=== PATIENT | female | born 1945 | race Caucasian/White ===

== ENCOUNTER 2018-08-26 19:42 | Outpatient (CLI) | payer SELFPAY | END 2018-08-26 19:43 | disposition EMS.NT | LOC: EMS 19:42 | PROVIDERS: ATTEND Surgery | DX: R53.83 Other fatigue (principal); R42 Dizziness and giddiness ==

== ENCOUNTER 2020-01-02 15:04 | Outpatient (CLI) | payer MEDICARE, OTHER | END 2020-01-02 15:05 | disposition short-term general hospital (02) | LOC: EMS 15:04 | PROVIDERS: ATTEND Surgery | DX: R55 Syncope and collapse (principal); R11.10 Vomiting, unspecified; R53.1 Weakness | CPT/HCPCS: A0425; A0427 ==

== ENCOUNTER 2020-03-04 15:06 | Outpatient (CLI) | payer MEDICARE, OTHER | END 2020-03-04 15:07 | disposition home or self-care (01) | LOC: COV 15:06 | PROVIDERS: ATTEND Family Medicine | DX: Z20.828 Contact with and (suspected) exposure to other viral communicable diseases (principal) ==

== ENCOUNTER 2022-01-28 18:49 | Outpatient (CLI) | payer MEDICARE, OTHER | END 2022-01-28 18:50 | disposition left against medical advice (07) | LOC: EMS 18:49 | DX: R55 Syncope and collapse (principal) ==

== ENCOUNTER 2022-08-26 16:01 | Outpatient (CLI) | payer MEDICARE, OTHER | END 2022-08-26 23:59 | disposition critical access hospital (66) | LOC: EMS 16:01 | DX: R41.0 Disorientation, unspecified (principal); R46.89 Other symptoms and signs involving appearance and behavior; S09.90XA Unspecified injury of head, initial encounter; W18.2XXA Fall in (into) shower or empty bathtub, initial encounter; Y92.002 Bathroom of unspecified non-institutional (private) residence as the place of occurrence of the external cause | CPT/HCPCS: A0425; A0429 ==

== ENCOUNTER 2022-08-26 16:18 | Emergency (ER) | payer MEDICARE, OTHER ==
--- NOTE | 2022-08-26 16:22 | ED Physician Documentation ---
PD HPI Fall - Stated complaint Stated Complaint: FALL/HEAD INJ - History obtained from History obtained from: EMS - Additional information Additional information: 77-year-old woman presents by ambulance as a trauma after reported fall. All of the history is from EMS as the patient is altered. Reportedly fell and hit her head against a handrail in a friend's bathroom. Unclear if there was loss of consciousness. PD PAST MEDICAL HISTORY - Past Medical History Cardiovascular: Hypertension - Past Surgical History General: Appendectomy Ortho: Other - Allergies Allergies/Adverse Reactions: Allergies Allergy/AdvReac Type Severity Reaction Status Date / Time Unable to Assess Allergy Verified 08/26/22 16:32 PD ED PE NORMAL - Vitals Vital signs reviewed: Yes - General General: Other (She is slightly agitated. She is alert and oriented to person only.) - HEENT HEENT: PERRL, EOMI, Other (There is infraorbital ecchymosis that appears old, EMS corroborates that she had a fall 10 days ago.) - Neck Neck: No bony TTP (But will maintain in c-collar pending imaging given altered mental status.) - Cardiac Cardiac: RRR, No murmur - Respiratory Respiratory: No respiratory distress, Clear bilaterally - Abdomen Abdomen: Non tender - Back Back: No CVA TTP, No spinal TTP - Derm Derm: Normal color, Warm and dry, No rash - Extremities Extremities: No deformity, No tenderness to palpate, Normal ROM s pain - Neuro Neuro: No motor deficit, No sensory deficit, Normal speech Eye Opening: Spontaneous Motor: Obeys Commands Verbal: Confused GCS Score: 14 Results - Vitals Vitals: Vital Signs - 24 hr 08/26/22 08/26/22 16:21 18:21 Temperature 36.5 C Heart Rate 81 84 Respiratory 16 17 Rate Blood Pressure 130/57 L 137/87 H O2 Saturation 99 96 Oxygen O2 Source Room air - EKG (time done) 9746 EKG releavant findings:: EKG personally interpreted by author of this note. Relevant findings are: Rate: Rate (enter#) (80) Rhythm: NSR Conway: Normal QRS: LVH Ischemia: Normal ST segments, Q waves (V1-V4) Compare to prior EKG: Old EKG unavailable Computer interpretation: Agree with computer - Labs Labs: Laboratory Tests 08/26/22 08/26/22 08/26/22 16:25 16:25 16:25 WBC 10.1 RBC 4.61 Hgb 14.2 Hct 42.6 MCV 92.4 MCH 30.8 MCHC 33.3 RDW 13.0 Plt Count 354 MPV 8.7 Neut # (Auto) 6.3 Lymph # (Auto) 2.7 Marshall # (Auto) 0.7 Eos # (Auto) 0.3 Baso # (Auto) 0.1 Absolute Nucleated RBC 0.00 Nucleated RBC % 0.0 PT 10.7 INR 1.0 Sodium 140 Potassium 3.4 L Chloride 102 Carbon Dioxide 24 Anion Gap 14.0 H BUN 25 H Creatinine 1.3 H Estimated GFR (MDRD) 40 L Glucose 156 H Calcium 9.7 Total Bilirubin 0.5 AST 22 ALT 17 Alkaline Phosphatase 84 Total Protein 7.2 Albumin 4.2 Globulin 3.0 Albumin/Globulin Ratio 1.4 Ethyl Alcohol < 5.0 PD Medical Decision Making - ED course ED course: I was in the room at the time of arrival, 1617 On recheck at 5:09 PM. She is alert and oriented and has no complaints. She does note that she felt dizzy before the fall and remembers feeling dizzy before the fall but still does not remember falling per se. We did notice today that she has mildly depressed renal function with a creatinine of 1.3 and a BUN of 25. Also mildly elevated blood sugar at 156. She ambulated in the department without issue. We discussed the findings on her labs and CTs. Her supportive son is at the bedside and will keep an eye on her. Departure - Departure Disposition: 01 Home, Self Care Clinical Impression: Concussion, Fall Condition: Stable Record reviewed to determine appropriate education?: Yes Instructions: ED Concussion Comments: You do have mildly poor kidney function. I do not have old labs on you here so is unclear this could be chronic. Talk with your doctor about it, for reference your BUN was 25 and creatinine was 1.3. Also your blood sugar was mildly elevated at 156. CAT scan of the head and neck were negative except for a mucous retention cyst in the left maxillary sinus which does not require specific intervention follow-up. Call your doctor to arrange a follow-up appointment, make the next available appointment. In the interim, return anytime if worse or if new symptoms develop.
[2022-08-26 16:30] LABS: BASOPHILS # (AUTO) 0.1 10^3/uL (0.0-0.1); BASOPHILS % (AUTO) 0.7 %; EOSINOPHILS # (AUTO) 0.3 10^3/uL (0.0-0.7); EOSINOPHILS % (AUTO) 3.4 %; HCT - HEMATOCRIT 42.6 % (37.0-47.0); HGB - HEMOGLOBIN 14.2 g/dL (12.0-16.0); LYMPHOCYTES # (AUTO) 2.7 10^3/uL (1.5-3.5); LYMPHOCYTES % (AUTO) 26.4 %; MEAN CORPUSCULAR HEMOGLOBIN 30.8 pg (27.0-31.0); MEAN CORPUSCULAR HGB CONC 33.3 g/dL (32.0-36.0); MEAN CORPUSCULAR VOLUME 92.4 fL (81.0-99.0); MEAN PLATELET VOLUME 8.7 fL (7.9-10.8); MONOCYTES # (AUTO) 0.7 10^3/uL (0.0-1.0); MONOCYTES % (AUTO) 6.7 %; NEUTROPHILS # (AUTO) 6.3 10^3/uL (1.5-6.6); NEUTROPHILS % (AUTO) 62.4 %; PLT - PLATELET COUNT 354 10^3/uL (130-450); RED BLOOD COUNT 4.61 10^6/uL (4.20-5.40); WHITE BLOOD COUNT 10.1 x10^3/uL (4.8-10.8)
[2022-08-26 16:39] LABS: PT - PROTHROMBIN TIME 10.7 secs (9.9-12.6)
[2022-08-26 16:42] LABS: ALBUMIN 4.2 g/dL (3.2-5.5); ALBUMIN/GLOBULIN RATIO 1.4 (1.0-2.2); ALKALINE PHOSPHATASE 84 IU/L (42-121); ALT ALANINE AMINOTRANSFERASE 17 IU/L (10-60); AST ASPARTATE AMINOTRANSFERASE 22 IU/L (10-42); BILIRUBIN,TOTAL 0.5 mg/dL (0.2-1.0); BUN - BLOOD UREA NITROGEN 25 mg/dL (6-20); CALCIUM 9.7 mg/dL (8.5-10.3); CARBON DIOXIDE - CO2 24 mmol/L (21-32); CHLORIDE 102 mmol/L (101-111); CREATININE 1.3 mg/dL (0.4-1.0); ETOH - ETHANOL < 5.0 mg/dL; GFR - MDRD 40 (>89); GLUCOSE 156 mg/dL (70-100); POTASSIUM 3.4 mmol/L (3.5-5.0); SODIUM 140 mmol/L (135-145); TOTAL PROTEIN 7.2 g/dL (6.7-8.2)
--- NOTE | 2022-08-26 16:51 | CT Report ---
PROCEDURE: HEAD WO INDICATIONS: head injury/ams TECHNIQUE: Noncontrast 4.5 mm thick angled axial sections acquired from the foramen magnum to the vertex. For r adiation dose reduction, the following was used: automated exposure control, adjustment of mA and/or kV according to patient size. COMPARISON: None. FINDINGS: Image quality: Excellent. CSF spaces: Basal cisterns are patent. No extra-axial fluid collections. Ventricles are normal in size and shape. Brain: No midline shift. No intracranial masses or hemorrhage. Luu-white matter interface is norm al. Age-related volume loss and small vessel ischemic change. Intracranial carotid calcifications. Skull and face: Calvarium and visualized facial bones are intact, without suspicious lesions. Sinuses: Left maxillary sinus mucous retention cyst. Otherwise paranasal sinuses as visualized are cl ear. Mastoids are clear. IMPRESSION: No acute process. Reviewed by: Con Larsen MD on 08/26/2022 4:50 PM PDT Approved by: Con Larsen MD on 08/26/2022 4:50 PM PDT Station ID: [id number]
--- NOTE | 2022-08-26 17:02 | CT Report ---
PROCEDURE: CERVICAL SPINE WO INDICATIONS: head injury/ams TECHNIQUE: Noncontrast 3 mm thick sections acquired from the skull base to the T4 level. Sagittal and coronal r eformats were then constructed. For radiation dose reduction, the following was used: automated exp osure control, adjustment of mA and/or kV according to patient size. COMPARISON: None. FINDINGS: Image quality: Excellent. Bones: No fractures or dislocations. Visualized superior ribs are intact. Cervical spondylitic jessica nge. Soft tissues: Prevertebral soft tissues are normal in thickness. No paravertebral hematomas. No ap ical pneumothoraces. IMPRESSION: No evidence of acute cervical fracture or dislocation. Reviewed by: Con Larsen MD on 08/26/2022 5:00 PM PDT Approved by: Con Larsen MD on 08/26/2022 5:00 PM PDT Station ID: [id number]
--- OUTSIDE RECORDS SUMMARY | 2022-08-26 18:07 | EXTERNAL MEDICAL SUMMARY RPT | Continuity of Care Document ---
Author Name Unknown Address [address] [place] [address] Phone Organization [facility] Address [address] [place] [address] Phone Care Team Providers Care Senior Principal Name Role Phone Cari Kuo Unavailable Unavailable Problems date description facility 2022-08-15 00:00 Laceration of forehead [facility] 2022-08-15 00:00 Anterior dislocation of left sh [facility] 2022-08-15 00:00 Abrasion of skin [facility] 2022-08-23 08:07 Unspecified injury of head, ini tial encounter [facility] Procedures date description facility 2022-08-15 00:00 XR shoulder left, 2+ views [facility] 2022-08-15 00:00 Computed tomography of head or brain without contrast [facility] Results/Labs test date author facility value unit interpretation Result panel 1 (unknown) (no date) (unknown) (unknown) (no value) (units unknown) (unknown) (unknown) (no date) (unknown) (unknown) [id number] (units unknown) (unknown) (unknown) (no date) (unknown) (unknown) 08/15/22 (units unknown) (unknown) (unknown) (no date) (unknown) (unknown) 11:00. (units unknown) (unknown) (unknown) (no date) (unknown) (unknown) [address] [place] [address] (un its unknown) (unknown) (unknown) (no date) (unknown) (unknown) Accession Numb er: [id number] (units unknown) (unknown) (unknown) (no date) (unknown) (unknown) Accession Numb er: [id number] (units unknown) (unknown) (unknown) (no date) (unknown) (unknown) Age/Sex: 77 / F Date of Service: (units unknown) (unknown) (unknown) (no date) (unknown) (unknown) [place] [address] (units unknown) (unknown) (unknown) (no date) (unknown) (unknown) Approved by: Alycia Buenrostro M.D. on 08/15/2022 at 14:26 (units unknown) (unknown) (unknown) (no date) (unknown) (unknown) Approved by: Anika Cassidy M.D. on 08/15/2022 at 16:23 (units unknown) (unknown) (unknown) (no date) (unknown) (unknown) Bones: Anterio r inferior left shoulder dislocation. Mild AC degenerative (units unknown) (unknown) (unknown) (no date) (unknown) (unknown) Brain: No intr acranial bleeds or masses. There is cerebral volume loss for (units unknown) (unknown) (unknown) (no date) (unknown) (unknown) COMPARISON: [facility], CR, SHOULDER MINIMUM 2VIEW RIGHT, 07/11/2014, (units unknown) (unknown) (unknown) (no date) (unknown) (unknown) COMPARISON: [facility], CT, HEAD WITHOUT CONTRAST, 07/11/2014, 11:08. (units unknown) (unknown) (unknown) (no date) (unknown) (unknown) CSF spaces: Ba todd cisterns are patent. No extra-axial fluid collections. The (units unknown) (unknown) (unknown) (no date) (unknown) (unknown) CT Scan Report (unit s unknown) (unknown) (unknown) (no date) (unknown) (unknown) : 3 Acct:[id number] (units unknown) (unknown) (unknown) (no date) (unknown) (unknown) Dictated by: Alycia Buenrostro M.D. on 08/15/2022 at 14:24 (units unknown) (unknown) (unknown) (no date) (unknown) (unknown) Dictated by: Anika Cassidy M.D. on 08/15/2022 at 16:22 (units unknown) (unknown) (unknown) (no date) (unknown) (unknown) FINDINGS: (units unknown) (unknown) (unknown) (no date) (unknown) (unknown) IMPRESSION: An terior shoulder dislocation. Please consider post relocation (units unknown) (unknown) (unknown) (no date) (unknown) (unknown) IMPRESSION: Mi ld left scalp hematoma seen, without an associated calvarial (units unknown) (unknown) (unknown) (no date) (unknown) (unknown) INDICATIONS: f all/hit head (units unknown) (unknown) (unknown) (no date) (unknown) (unknown) INDICATIONS: fall/pa in (units unknown) (unknown) (unknown) (no date) (unknown) (unknown) Image quality: There is artifact associated with the metallic earrings. (units unknown) (unknown) (unknown) (no date) (unknown) (unknown) [facility] (uni ts unknown) (unknown) (unknown) (no date) (unknown) (unknown) Loc: ED (units unknown) (unknown) (unknown) (no date) (unknown) (unknown) No acute intra cranial hemorrhage is seen. (units unknown) (unknown) (unknown) (no date) (unknown) (unknown) No acute intra cranial process is seen. (units unknown) (unknown) (unknown) (no date) (unknown) (unknown) Noncontrast 4. 5 mm thick angled axial sections acquired from the foramen magnum (units unknown) (unknown) (unknown) (no date) (unknown) (unknown) Ordering Provi yoko: Regulo Joseph D.O. (units unknown) (unknown) (unknown) (no date) (unknown) (unknown) PROCEDURE: CT HEAD/BRAIN WO CON (units unknown) (unknown) (unknown) (no date) (unknown) (unknown) PROCEDURE: XR SHOULDER LT MIN 2V (units unknown) (unknown) (unknown) (no date) (unknown) (unknown) Patient: Megan Washington MR#: [id number] (units unknown) (unknown) (unknown) (no date) (unknown) (unknown) Procedure: CT head/brain wo con (units unknown) (unknown) (unknown) (no date) (unknown) (unknown) Procedure: XR shoulder LT min 2V (units unknown) (unknown) (unknown) (no date) (unknown) (unknown) Signed (units unknown) (unknown) (unknown) (no date) (unknown) (unknown) Sinuses: Visua lized sinuses and mastoids are clear. (units unknown) (unknown) (unknown) (no date) (unknown) (unknown) Skull and face : There is a mild scalp hematoma seen anteriorly and on the left, (units unknown) (unknown) (unknown) (no date) (unknown) (unknown) Soft tissues: No suspicious soft tissue calcifications. (units unknown) (unknown) (unknown) (no date) (unknown) (unknown) TECHNIQUE: 3 v iews of the shoulder were acquired. (units unknown) (unknown) (unknown) (no date) (unknown) (unknown) TECHNIQUE: (units unknown) (unknown) (unknown) (no date) (unknown) (unknown) XRay Report (units unknown) (unknown) (unknown) (no date) (unknown) (unknown) age, with (units unknown) (unknown) (unknown) (no date) (unknown) (unknown) artery atherosclerosis. (units unknown) (unknown) (unknown) (no date) (unknown) (unknown) as on (units unknown) (unknown) (unknown) (no date) (unknown) (unknown) can be (units unknown) (unknown) (unknown) (no date) (unknown) (unknown) carotid (units unknown) (unknown) (unknown) (no date) (unknown) (unknown) changes. (units unknown) (unknown) (unknown) (no date) (unknown) (unknown) evaluate any underlying Hill-Sachs or [place] fractures. (units unknown) (unknown) (unknown) (no date) (unknown) (unknown) facial bones a ppear intact, without suspicious lesions. (units unknown) (unknown) (unknown) (no date) (unknown) (unknown) following (units unknown) (unknown) (unknown) (no date) (unknown) (unknown) fracture. (units unknown) (unknown) (unknown) (no date) (unknown) (unknown) imaging t to (units unknown) (unknown) (unknown) (no date) (unknown) (unknown) matter chronic small vessel ischemic changes. Areas of remote lacunar infarcts (units unknown) (unknown) (unknown) (no date) (unknown) (unknown) patient (units unknown) (unknown) (unknown) (no date) (unknown) (unknown) resultant vent ricular and sulcal prominence. There are periventricular and deep (units unknown) (unknown) (unknown) (no date) (unknown) (unknown) seen involving the basal ganglia on both sides. There is intracranial internal (units unknown) (unknown) (unknown) (no date) (unknown) (unknown) series 2, imag e 25. No associated calvarial fracture is seen. Calvarium and (units unknown) (unknown) (unknown) (no date) (unknown) (unknown) size. (units unknown) (unknown) (unknown) (no date) (unknown) (unknown) to the (units unknown) (unknown) (unknown) (no date) (unknown) (unknown) ventricles are symmetric in size and shape. (units unknown) (unknown) (unknown) (no date) (unknown) (unknown) vertex, with c oronal and sagittal reformats. For radiation dose reduction, the (units unknown) (unknown) (unknown) (no date) (unknown) (unknown) visualized (units unknown) (unknown) (unknown) (no date) (unknown) (unknown) was used: auto mated exposure control, adjustment of mA and/or kV according to (units unknown) (unknown) (unknown) (no date) (unknown) (unknown) white (units unknown) (unknown) Result panel 2 (unknown) (no date) (unknown) (unknown) (no value) (units unknown) (unknown) (unknown) (no date) (unknown) (unknown) [id number] (units unknown) (unknown) (unknown) (no date) (unknown) (unknown) 08/15/22 14:57 (unit s unknown) (unknown) (unknown) (no date) (unknown) (unknown) 08/15/22 (units unknown) (unknown) (unknown) (no date) (unknown) (unknown) 14:40 08/15/22 (unit s unknown) (unknown) (unknown) (no date) (unknown) (unknown) 14:52 08/15/22 (unit s unknown) (unknown) (unknown) (no date) (unknown) (unknown) 14:53 08/15/22 (unit s unknown) (unknown) (unknown) (no date) (unknown) (unknown) 14:53 (units unknown) (unknown) (unknown) (no date) (unknown) (unknown) 15:00 (units unknown) (unknown) (unknown) (no date) (unknown) (unknown) ? (units unknown) (unknown) (unknown) (no date) (unknown) (unknown) Age/Sex: 77 / F (uni ts unknown) (unknown) (unknown) (no date) (unknown) (unknown) Allergies (units unknown) (unknown) (unknown) (no date) (unknown) (unknown) Allergy/AdvRea c Type Severity Reaction Status Date / Time (units unknown) (unknown) (unknown) (no date) (unknown) (unknown) Blood Pressure 236/105 H 08/15/22 14:40 (units unknown) (unknown) (unknown) (no date) (unknown) (unknown) Blood Pressure 236/105 H (units unknown) (unknown) (unknown) (no date) (unknown) (unknown) Blood Pressure 237/106 H (units unknown) (unknown) (unknown) (no date) (unknown) (unknown) Brain:? No intracranial bleeds or masses.? There is cerebral volume loss for (units unknown) (unknown) (unknown) (no date) (unknown) (unknown) COMPARISON:? [facility], CT, HEAD WITHOUT CONTRAST, 07/11/2014, 11:08. (units unknown) (unknown) (unknown) (no date) (unknown) (unknown) CSF spaces:? B elvie cisterns are patent.? No extra-axial fluid collections.? The (units unknown) (unknown) (unknown) (no date) (unknown) (unknown) CT head/brain wo con Stat (units unknown) (unknown) (unknown) (no date) (unknown) (unknown) CT scan - head: (uni ts unknown) (unknown) (unknown) (no date) (unknown) (unknown) Chief complaint: Fal l (units unknown) (unknown) (unknown) (no date) (unknown) (unknown) Course (units unknown) (unknown) (unknown) (no date) (unknown) (unknown) : 3 Acct:[id number] (units unknown) (unknown) (unknown) (no date) (unknown) (unknown) Date of Servic e: 08/15/22 (units unknown) (unknown) (unknown) (no date) (unknown) (unknown) Departure (units unknown) (unknown) (unknown) (no date) (unknown) (unknown) Cari Kuo PA-C [Primary Care Provider] (units unknown) (unknown) (unknown) (no date) (unknown) (unknown) Discharge Plan (unit s unknown) (unknown) (unknown) (no date) (unknown) (unknown) ED Orders (units unknown) (unknown) (unknown) (no date) (unknown) (unknown) ER Physician: Regulo Joseph D.O. (units unknown) (unknown) (unknown) (no date) (unknown) (unknown) Emergency Report (un its unknown) (unknown) (unknown) (no date) (unknown) (unknown) Exam (units unknown) (unknown) (unknown) (no date) (unknown) (unknown) FINDINGS:? (units unknown) (unknown) (unknown) (no date) (unknown) (unknown) General (units unknown) (unknown) (unknown) (no date) (unknown) (unknown) HPI - General Adult (units unknown) (unknown) (unknown) (no date) (unknown) (unknown) Hx of appendectomy ( units unknown) (unknown) (unknown) (no date) (unknown) (unknown) Hypertension (units unknown) (unknown) (unknown) (no date) (unknown) (unknown) IMPRESSION:? M ild left scalp hematoma seen, without an associated calvarial (units unknown) (unknown) (unknown) (no date) (unknown) (unknown) INDICATIONS:? fall/hit head (units unknown) (unknown) (unknown) (no date) (unknown) (unknown) Image quality: ? There is artifact associated with the metallic earrings. ? (units unknown) (unknown) (unknown) (no date) (unknown) (unknown) Imaging Data (units unknown) (unknown) (unknown) (no date) (unknown) (unknown) Initial Vital Signs (units unknown) (unknown) (unknown) (no date) (unknown) (unknown) Initial Vital Signs: (units unknown) (unknown) (unknown) (no date) (unknown) (unknown) [address] [address] (units unknown) (unknown) (unknown) (no date) (unknown) (unknown) Medical [place] (units unknown) (unknown) (unknown) (no date) (unknown) (unknown) Medical Histor y (units unknown) (unknown) (unknown) (no date) (unknown) (unknown) Mode of arriva l: Ambulatory (units unknown) (unknown) (unknown) (no date) (unknown) (unknown) No acute intra cranial hemorrhage is seen.? (units unknown) (unknown) (unknown) (no date) (unknown) (unknown) No acute intra cranial process is seen. (units unknown) (unknown) (unknown) (no date) (unknown) (unknown) Noncontrast 4. 5 mm thick angled axial sections acquired from the foramen magnum (units unknown) (unknown) (unknown) (no date) (unknown) (unknown) Ordered: (units unknown) (unknown) (unknown) (no date) (unknown) (unknown) Orders (units unknown) (unknown) (unknown) (no date) (unknown) (unknown) Oxygen Deliver y Method Room Air 08/15/22 14:40 (units unknown) (unknown) (unknown) (no date) (unknown) (unknown) Oxygen Deliver y Method Room Air (units unknown) (unknown) (unknown) (no date) (unknown) (unknown) Patient History (uni ts unknown) (unknown) (unknown) (no date) (unknown) (unknown) Patient: Megan Washington MR#: [id number] (units unknown) (unknown) (unknown) (no date) (unknown) (unknown) Pulse Oximetry 96 (u nits unknown) (unknown) (unknown) (no date) (unknown) (unknown) Pulse Oximetry 97 08/15/22 14:40 (units unknown) (unknown) (unknown) (no date) (unknown) (unknown) Pulse Oximetry 97 94 95 (units unknown) (unknown) (unknown) (no date) (unknown) (unknown) Pulse Rate 85 (units unknown) (unknown) (unknown) (no date) (unknown) (unknown) Pulse Rate 89 08/15/22 14:40 (units unknown) (unknown) (unknown) (no date) (unknown) (unknown) Pulse Rate 89 93 H 8 9 (units unknown) (unknown) (unknown) (no date) (unknown) (unknown) ROCEDURE:? CT HEAD/BRAIN WO CON (units unknown) (unknown) (unknown) (no date) (unknown) (unknown) Radiologist's Impression: (units unknown) (unknown) (unknown) (no date) (unknown) (unknown) Referrals: (units unknown) (unknown) (unknown) (no date) (unknown) (unknown) Related Data (units unknown) (unknown) (unknown) (no date) (unknown) (unknown) Respiratory Ra te 16 08/15/22 14:40 (units unknown) (unknown) (unknown) (no date) (unknown) (unknown) Respiratory Rate 16 (units unknown) (unknown) (unknown) (no date) (unknown) (unknown) Respiratory Rate (un its unknown) (unknown) (unknown) (no date) (unknown) (unknown) Signed By: (units unknown) (unknown) (unknown) (no date) (unknown) (unknown) Sinuses:? Visu alized sinuses and mastoids are clear.? (units unknown) (unknown) (unknown) (no date) (unknown) (unknown) Skull and face :? There is a mild scalp hematoma seen anteriorly and on the left, (units unknown) (unknown) (unknown) (no date) (unknown) (unknown) Smoking Status : Former smoker (units unknown) (unknown) (unknown) (no date) (unknown) (unknown) Social History (units unknown) (unknown) (unknown) (no date) (unknown) (unknown) Source: patient (uni ts unknown) (unknown) (unknown) (no date) (unknown) (unknown) Stated complai nt: fall, head wound, left arm and shoulder pain (units unknown) (unknown) (unknown) (no date) (unknown) (unknown) Substance Use Type: does not use (units unknown) (unknown) (unknown) (no date) (unknown) (unknown) Surgical Histo ry (units unknown) (unknown) (unknown) (no date) (unknown) (unknown) TECHNIQUE:? (units unknown) (unknown) (unknown) (no date) (unknown) (unknown) Temperature 98 .6 F 08/15/22 14:40 (units unknown) (unknown) (unknown) (no date) (unknown) (unknown) Temperature 98.6 F ( units unknown) (unknown) (unknown) (no date) (unknown) (unknown) Temperature (units unknown) (unknown) (unknown) (no date) (unknown) (unknown) Tetanus Toxoid Allergy Unknown Uncoded 07/12/17 12:14 (units unknown) (unknown) (unknown) (no date) (unknown) (unknown) Time Seen by [place]: 08/15/22 15:06 (units unknown) (unknown) (unknown) (no date) (unknown) (unknown) Vital Signs - 8 hr ( units unknown) (unknown) (unknown) (no date) (unknown) (unknown) Vital Signs (units unknown) (unknown) (unknown) (no date) (unknown) (unknown) Vital signs: (units unknown) (unknown) (unknown) (no date) (unknown) (unknown) XR shoulder LT min 2V Stat (units unknown) (unknown) (unknown) (no date) (unknown) (unknown) age, with (units unknown) (unknown) (unknown) (no date) (unknown) (unknown) alcohol intake: neve r (units unknown) (unknown) (unknown) (no date) (unknown) (unknown) artery atherosclerosis.? (units unknown) (unknown) (unknown) (no date) (unknown) (unknown) as on (units unknown) (unknown) (unknown) (no date) (unknown) (unknown) can be (units unknown) (unknown) (unknown) (no date) (unknown) (unknown) carotid (units unknown) (unknown) (unknown) (no date) (unknown) (unknown) facial bones a ppear intact, without suspicious lesions.? (units unknown) (unknown) (unknown) (no date) (unknown) (unknown) following (units unknown) (unknown) (unknown) (no date) (unknown) (unknown) fracture. (units unknown) (unknown) (unknown) (no date) (unknown) (unknown) household memb ers: none (units unknown) (unknown) (unknown) (no date) (unknown) (unknown) matter chronic small vessel ischemic changes.? Areas of remote lacunar infarcts (units unknown) (unknown) (unknown) (no date) (unknown) (unknown) patient (units unknown) (unknown) (unknown) (no date) (unknown) (unknown) resultant vent ricular and sulcal prominence.? There are periventricular and deep (units unknown) (unknown) (unknown) (no date) (unknown) (unknown) seen involving the basal ganglia on both sides.? There is intracranial internal (units unknown) (unknown) (unknown) (no date) (unknown) (unknown) series 2, imag e 25. No associated calvarial fracture is seen.? Calvarium and (units unknown) (unknown) (unknown) (no date) (unknown) (unknown) size.? (units unknown) (unknown) (unknown) (no date) (unknown) (unknown) to the (units unknown) (unknown) (unknown) (no date) (unknown) (unknown) ventricles are symmetric in size and shape.? (units unknown) (unknown) (unknown) (no date) (unknown) (unknown) vertex, with c oronal and sagittal reformats.? For radiation dose reduction, the (units unknown) (unknown) (unknown) (no date) (unknown) (unknown) visualized (units unknown) (unknown) (unknown) (no date) (unknown) (unknown) was used:? aut omated exposure control, adjustment of mA and/or kV according to (units unknown) (unknown) (unknown) (no date) (unknown) (unknown) white (units unknown) (unknown) Result panel 3 (unknown) (no date) (unknown) (unknown) (no value) (units unknown) (unknown) (unknown) (no date) (unknown) (unknown) [id number] (units unknown) (unknown) (unknown) (no date) (unknown) (unknown) 08/15/22 14:57 (unit s unknown) (unknown) (unknown) (no date) (unknown) (unknown) 08/15/22 (units unknown) (unknown) (unknown) (no date) (unknown) (unknown) 1 cm laceratio n to forehead. Contusion to anterior left knee. (units unknown) (unknown) (unknown) (no date) (unknown) (unknown) 11:00. (units unknown) (unknown) (unknown) (no date) (unknown) (unknown) 14:40 08/15/22 (unit s unknown) (unknown) (unknown) (no date) (unknown) (unknown) 14:52 08/15/22 (unit s unknown) (unknown) (unknown) (no date) (unknown) (unknown) 14:53 08/15/22 (unit s unknown) (unknown) (unknown) (no date) (unknown) (unknown) 14:53 (units unknown) (unknown) (unknown) (no date) (unknown) (unknown) 15:00 (units unknown) (unknown) (unknown) (no date) (unknown) (unknown) ? (units unknown) (unknown) (unknown) (no date) (unknown) (unknown) Age/Sex: 77 / F (uni ts unknown) (unknown) (unknown) (no date) (unknown) (unknown) Allergies (units unknown) (unknown) (unknown) (no date) (unknown) (unknown) Allergy/AdvRea c Type Severity Reaction Status Date / Time (units unknown) (unknown) (unknown) (no date) (unknown) (unknown) Altered level of conciousness present: No (units unknown) (unknown) (unknown) (no date) (unknown) (unknown) Auscultation: clear to auscultation bilaterally (units unknown) (unknown) (unknown) (no date) (unknown) (unknown) Back/Spine/Pelvis (u nits unknown) (unknown) (unknown) (no date) (unknown) (unknown) Bandage was pl aced over the cut to her forehead. (units unknown) (unknown) (unknown) (no date) (unknown) (unknown) Bedside Urine Bilirubin - Negative (units unknown) (unknown) (unknown) (no date) (unknown) (unknown) Bedside Urine Glucose Negative (units unknown) (unknown) (unknown) (no date) (unknown) (unknown) Bedside Urine Ketone - Negative (units unknown) (unknown) (unknown) (no date) (unknown) (unknown) Bedside Urine Leukocytes + 70 (units unknown) (unknown) (unknown) (no date) (unknown) (unknown) Bedside Urine Nitrite + Positive (units unknown) (unknown) (unknown) (no date) (unknown) (unknown) Bedside Urine Occult Blood +/ (units unknown) (unknown) (unknown) (no date) (unknown) (unknown) Bedside Urine Protein - Negative (units unknown) (unknown) (unknown) (no date) (unknown) (unknown) Bedside Urine Urobilinogen - Negative (units unknown) (unknown) (unknown) (no date) (unknown) (unknown) Bedside Urine pH 6.5 (units unknown) (unknown) (unknown) (no date) (unknown) (unknown) Blood Pressure 236/105 H 08/15/22 14:40 (units unknown) (unknown) (unknown) (no date) (unknown) (unknown) Blood Pressure 236/105 H (units unknown) (unknown) (unknown) (no date) (unknown) (unknown) Blood Pressure 237/106 H (units unknown) (unknown) (unknown) (no date) (unknown) (unknown) Bones:? Anteri or inferior left shoulder dislocation.? Mild AC degenerative (units unknown) (unknown) (unknown) (no date) (unknown) (unknown) Brain:? No intracranial bleeds or masses.? There is cerebral volume loss for (units unknown) (unknown) (unknown) (no date) (unknown) (unknown) COMPARISON:? [facility], CR, SHOULDER MINIMUM 2VIEW RIGHT, 07/11/2014, (units unknown) (unknown) (unknown) (no date) (unknown) (unknown) COMPARISON:? [facility], CT, HEAD WITHOUT CONTRAST, 07/11/2014, 11:08. (units unknown) (unknown) (unknown) (no date) (unknown) (unknown) CSF spaces:? B elvie cisterns are patent.? No extra-axial fluid collections.? The (units unknown) (unknown) (unknown) (no date) (unknown) (unknown) CT head/brain wo con Stat (units unknown) (unknown) (unknown) (no date) (unknown) (unknown) CT scan - head: (uni ts unknown) (unknown) (unknown) (no date) (unknown) (unknown) Cardio (units unknown) (unknown) (unknown) (no date) (unknown) (unknown) Cardiovascular (unit s unknown) (unknown) (unknown) (no date) (unknown) (unknown) Cardiovascular : Reports system reviewed and no additional complaints, except as (units unknown) (unknown) (unknown) (no date) (unknown) (unknown) Cervical Spine : No cervical muscular tenderness and No cervical spinal (units unknown) (unknown) (unknown) (no date) (unknown) (unknown) Chest (units unknown) (unknown) (unknown) (no date) (unknown) (unknown) Chest: No crep itus and No tenderness (units unknown) (unknown) (unknown) (no date) (unknown) (unknown) Chief complaint: Fal l (units unknown) (unknown) (unknown) (no date) (unknown) (unknown) Const (units unknown) (unknown) (unknown) (no date) (unknown) (unknown) Constitutional (unit s unknown) (unknown) (unknown) (no date) (unknown) (unknown) Constitutional : Reports system reviewed and no additional complaints, except as (units unknown) (unknown) (unknown) (no date) (unknown) (unknown) Course (units unknown) (unknown) (unknown) (no date) (unknown) (unknown) : 3 Acct:[id number] (units unknown) (unknown) (unknown) (no date) (unknown) (unknown) Date of Servic e: 08/15/22 (units unknown) (unknown) (unknown) (no date) (unknown) (unknown) Departure (units unknown) (unknown) (unknown) (no date) (unknown) (unknown) Cari Kuo PA-C [Primary Care Provider] (units unknown) (unknown) (unknown) (no date) (unknown) (unknown) Discharge Plan (unit s unknown) (unknown) (unknown) (no date) (unknown) (unknown) Discomfort to the left shoulder. Tingling to the left little finger. (units unknown) (unknown) (unknown) (no date) (unknown) (unknown) Discontinued Medications (units unknown) (unknown) (unknown) (no date) (unknown) (unknown) Distracting In jury Present: No (units unknown) (unknown) (unknown) (no date) (unknown) (unknown) ED Orders (units unknown) (unknown) (unknown) (no date) (unknown) (unknown) ENT (units unknown) (unknown) (unknown) (no date) (unknown) (unknown) ER Physician: Regulo Joseph D.O. (units unknown) (unknown) (unknown) (no date) (unknown) (unknown) Ears, Nose, Mo uth, and Throat: Reports system reviewed and no additional (units unknown) (unknown) (unknown) (no date) (unknown) (unknown) Effort + Inspe ction: normal respiratory effort (units unknown) (unknown) (unknown) (no date) (unknown) (unknown) Emergency Report (un its unknown) (unknown) (unknown) (no date) (unknown) (unknown) Esterase (units unknown) (unknown) (unknown) (no date) (unknown) (unknown) Exam (units unknown) (unknown) (unknown) (no date) (unknown) (unknown) Extrem (units unknown) (unknown) (unknown) (no date) (unknown) (unknown) Extremity x-ray #1: (units unknown) (unknown) (unknown) (no date) (unknown) (unknown) FINDINGS:? (units unknown) (unknown) (unknown) (no date) (unknown) (unknown) Focal Neurolog ic deficit present: No (units unknown) (unknown) (unknown) (no date) (unknown) (unknown) GCS (units unknown) (unknown) (unknown) (no date) (unknown) (unknown) Gastrointestinal (un its unknown) (unknown) (unknown) (no date) (unknown) (unknown) Gastrointestin al: Reports system reviewed and no additional complaints, except (units unknown) (unknown) (unknown) (no date) (unknown) (unknown) General (units unknown) (unknown) (unknown) (no date) (unknown) (unknown) General: coope rative, comfortable and No ill appearing (units unknown) (unknown) (unknown) (no date) (unknown) (unknown) General: patie nt alert, patient awake and patient oriented x3 (units unknown) (unknown) (unknown) (no date) (unknown) (unknown) [place] coma [place] eye opening: Spontaneous (units unknown) (unknown) (unknown) (no date) (unknown) (unknown) [place] coma s [place] motor response: Obey commands (units unknown) (unknown) (unknown) (no date) (unknown) (unknown) [place] coma [place] total score: 15 (units unknown) (unknown) (unknown) (no date) (unknown) (unknown) [place] coma [place] verbal response: Orientated (units unknown) (unknown) (unknown) (no date) (unknown) (unknown) HENMT (units unknown) (unknown) (unknown) (no date) (unknown) (unknown) HPI - General Adult (units unknown) (unknown) (unknown) (no date) (unknown) (unknown) HPI narrative: (unit s unknown) (unknown) (unknown) (no date) (unknown) (unknown) Head: contusio n and laceration (Forehead) (units unknown) (unknown) (unknown) (no date) (unknown) (unknown) Hematologic/Lymphati c (units unknown) (unknown) (unknown) (no date) (unknown) (unknown) History of Pre sent Illness (units unknown) (unknown) (unknown) (no date) (unknown) (unknown) Hx of appendectomy ( units unknown) (unknown) (unknown) (no date) (unknown) (unknown) Hypertension (units unknown) (unknown) (unknown) (no date) (unknown) (unknown) IMPRESSION:? A nterior shoulder dislocation.? Please consider post relocation (units unknown) (unknown) (unknown) (no date) (unknown) (unknown) IMPRESSION:? M ild left scalp hematoma seen, without an associated calvarial (units unknown) (unknown) (unknown) (no date) (unknown) (unknown) INDICATIONS:? fall/hit head (units unknown) (unknown) (unknown) (no date) (unknown) (unknown) INDICATIONS:? fall/pain (units unknown) (unknown) (unknown) (no date) (unknown) (unknown) Image quality: ? There is artifact associated with the metallic earrings. ? (units unknown) (unknown) (unknown) (no date) (unknown) (unknown) Imaging Data (units unknown) (unknown) (unknown) (no date) (unknown) (unknown) Initial Vital Signs (units unknown) (unknown) (unknown) (no date) (unknown) (unknown) Initial Vital Signs: (units unknown) (unknown) (unknown) (no date) (unknown) (unknown) Integumentary/Breast s (units unknown) (unknown) (unknown) (no date) (unknown) (unknown) Intoxication p resent: No (units unknown) (unknown) (unknown) (no date) (unknown) (unknown) [address] [place] [address] (units unknown) (unknown) (unknown) (no date) (unknown) (unknown) Lab Data (units unknown) (unknown) (unknown) (no date) (unknown) (unknown) Lab results re viewed: Yes I reviewed the patient's lab results. (units unknown) (unknown) (unknown) (no date) (unknown) (unknown) Labs: (units unknown) (unknown) (unknown) (no date) (unknown) (unknown) Medical Decisi on Making (units unknown) (unknown) (unknown) (no date) (unknown) (unknown) Medical Histor y (units unknown) (unknown) (unknown) (no date) (unknown) (unknown) Midline spinal tenderness present: No (units unknown) (unknown) (unknown) (no date) (unknown) (unknown) Mode of arriva l: Ambulatory (units unknown) (unknown) (unknown) (no date) (unknown) (unknown) Neuro (units unknown) (unknown) (unknown) (no date) (unknown) (unknown) Neurologic (units unknown) (unknown) (unknown) (no date) (unknown) (unknown) Neurologic: Re ports system reviewed and no additional complaints, except as (units unknown) (unknown) (unknown) (no date) (unknown) (unknown) Nexus Criteria for C-spine: 0 (units unknown) (unknown) (unknown) (no date) (unknown) (unknown) Nexus Score fo r C-Spine (units unknown) (unknown) (unknown) (no date) (unknown) (unknown) No acute intra cranial hemorrhage is seen.? (units unknown) (unknown) (unknown) (no date) (unknown) (unknown) No acute intra cranial process is seen. (units unknown) (unknown) (unknown) (no date) (unknown) (unknown) Noncontrast 4. 5 mm thick angled axial sections acquired from the foramen magnum (units unknown) (unknown) (unknown) (no date) (unknown) (unknown) On Anticoagulants: Y es (units unknown) (unknown) (unknown) (no date) (unknown) (unknown) Ordered: (units unknown) (unknown) (unknown) (no date) (unknown) (unknown) Orders (units unknown) (unknown) (unknown) (no date) (unknown) (unknown) Other: (units unknown) (unknown) (unknown) (no date) (unknown) (unknown) Oxygen Deliver y Method Room Air 08/15/22 14:40 (units unknown) (unknown) (unknown) (no date) (unknown) (unknown) Oxygen Deliver y Method Room Air (units unknown) (unknown) (unknown) (no date) (unknown) (unknown) PROCEDURE:? XR SHOULDER LT MIN 2V (units unknown) (unknown) (unknown) (no date) (unknown) (unknown) Patient History (uni ts unknown) (unknown) (unknown) (no date) (unknown) (unknown) Patient is a 77-year-old female who is here for evaluation of injuries that she (units unknown) (unknown) (unknown) (no date) (unknown) (unknown) Patient: Megan Washington MR#: [id number] (units unknown) (unknown) (unknown) (no date) (unknown) (unknown) Point of care testin g: (units unknown) (unknown) (unknown) (no date) (unknown) (unknown) Propofol (Prop ofol 200 Mg/20 Ml Vial) 100 mg IV NOW ONE (units unknown) (unknown) (unknown) (no date) (unknown) (unknown) Pulse Oximetry 96 (u nits unknown) (unknown) (unknown) (no date) (unknown) (unknown) Pulse Oximetry 97 08/15/22 14:40 (units unknown) (unknown) (unknown) (no date) (unknown) (unknown) Pulse Oximetry 97 94 95 (units unknown) (unknown) (unknown) (no date) (unknown) (unknown) Pulse Rate 85 (units unknown) (unknown) (unknown) (no date) (unknown) (unknown) Pulse Rate 89 08/15/22 14:40 (units unknown) (unknown) (unknown) (no date) (unknown) (unknown) Pulse Rate 89 93 H 8 9 (units unknown) (unknown) (unknown) (no date) (unknown) (unknown) ROCEDURE:? CT HEAD/BRAIN WO CON (units unknown) (unknown) (unknown) (no date) (unknown) (unknown) Radiologist's Impression: (units unknown) (unknown) (unknown) (no date) (unknown) (unknown) Rate: regular rate ( units unknown) (unknown) (unknown) (no date) (unknown) (unknown) Referrals: (units unknown) (unknown) (unknown) (no date) (unknown) (unknown) Related Data (units unknown) (unknown) (unknown) (no date) (unknown) (unknown) Resp (units unknown) (unknown) (unknown) (no date) (unknown) (unknown) Respiratory Ra te 16 08/15/22 14:40 (units unknown) (unknown) (unknown) (no date) (unknown) (unknown) Respiratory Rate 16 (units unknown) (unknown) (unknown) (no date) (unknown) (unknown) Respiratory Rate (un its unknown) (unknown) (unknown) (no date) (unknown) (unknown) Respiratory (units unknown) (unknown) (unknown) (no date) (unknown) (unknown) Respiratory: R eports system reviewed and no additional complaints, except as (units unknown) (unknown) (unknown) (no date) (unknown) (unknown) Review of Systems (u nits unknown) (unknown) (unknown) (no date) (unknown) (unknown) Rhythm: regular rhyt hm (units unknown) (unknown) (unknown) (no date) (unknown) (unknown) Scores (units unknown) (unknown) (unknown) (no date) (unknown) (unknown) Signed By: (units unknown) (unknown) (unknown) (no date) (unknown) (unknown) Sinuses:? Visu alized sinuses and mastoids are clear.? (units unknown) (unknown) (unknown) (no date) (unknown) (unknown) Skin (units unknown) (unknown) (unknown) (no date) (unknown) (unknown) Skin/Breast: R eports system reviewed and no additional complaints, except as (units unknown) (unknown) (unknown) (no date) (unknown) (unknown) Skull and face :? There is a mild scalp hematoma seen anteriorly and on the left, (units unknown) (unknown) (unknown) (no date) (unknown) (unknown) Smoking Status : Former smoker (units unknown) (unknown) (unknown) (no date) (unknown) (unknown) Social History (units unknown) (unknown) (unknown) (no date) (unknown) (unknown) Sodium Chlorid e (Normal Saline 0.9%) 1,000 mls @ 125 mls/hr IV CONT JACKI (units unknown) (unknown) (unknown) (no date) (unknown) (unknown) Soft tissues:? No suspicious soft tissue calcifications.? (units unknown) (unknown) (unknown) (no date) (unknown) (unknown) Source: patient (uni ts unknown) (unknown) (unknown) (no date) (unknown) (unknown) Stated complai nt: fall, head wound, left arm and shoulder pain (units unknown) (unknown) (unknown) (no date) (unknown) (unknown) Stop: 08/15/22 16:13 (units unknown) (unknown) (unknown) (no date) (unknown) (unknown) Substance Use Type: does not use (units unknown) (unknown) (unknown) (no date) (unknown) (unknown) Surgical Histo ry (units unknown) (unknown) (unknown) (no date) (unknown) (unknown) TECHNIQUE:? 3 views of the shoulder were acquired.? (units unknown) (unknown) (unknown) (no date) (unknown) (unknown) TECHNIQUE:? (units unknown) (unknown) (unknown) (no date) (unknown) (unknown) Temperature 98 .6 F 08/15/22 14:40 (units unknown) (unknown) (unknown) (no date) (unknown) (unknown) Temperature 98.6 F ( units unknown) (unknown) (unknown) (no date) (unknown) (unknown) Temperature (units unknown) (unknown) (unknown) (no date) (unknown) (unknown) Tetanus Toxoid Allergy Unknown Uncoded 07/12/17 12:14 (units unknown) (unknown) (unknown) (no date) (unknown) (unknown) Time Seen by [place]: 08/15/22 15:06 (units unknown) (unknown) (unknown) (no date) (unknown) (unknown) Urine Dip (units unknown) (unknown) (unknown) (no date) (unknown) (unknown) Urine Specific [place] 1.015 (units unknown) (unknown) (unknown) (no date) (unknown) (unknown) Vital Signs - 8 hr ( units unknown) (unknown) (unknown) (no date) (unknown) (unknown) Vital Signs (units unknown) (unknown) (unknown) (no date) (unknown) (unknown) Vital signs: (units unknown) (unknown) (unknown) (no date) (unknown) (unknown) XR shoulder LT min 2V Stat (units unknown) (unknown) (unknown) (no date) (unknown) (unknown) age, with (units unknown) (unknown) (unknown) (no date) (unknown) (unknown) alcohol intake: karoline yang (units unknown) (unknown) (unknown) (no date) (unknown) (unknown) and fell for[address] and hit her head and also injured her left shoulder. There was (units unknown) (unknown) (unknown) (no date) (unknown) (unknown) artery atherosclerosis.? (units unknown) (unknown) (unknown) (no date) (unknown) (unknown) as documented (units unknown) (unknown) (unknown) (no date) (unknown) (unknown) as on (units unknown) (unknown) (unknown) (no date) (unknown) (unknown) can be (units unknown) (unknown) (unknown) (no date) (unknown) (unknown) carotid (units unknown) (unknown) (unknown) (no date) (unknown) (unknown) changes. (units unknown) (unknown) (unknown) (no date) (unknown) (unknown) complaints, ex cept as documented (units unknown) (unknown) (unknown) (no date) (unknown) (unknown) documented (units unknown) (unknown) (unknown) (no date) (unknown) (unknown) evaluate any underlying Hill-Sachs or [place] fractures. (units unknown) (unknown) (unknown) (no date) (unknown) (unknown) facial bones a ppear intact, without suspicious lesions.? (units unknown) (unknown) (unknown) (no date) (unknown) (unknown) following (units unknown) (unknown) (unknown) (no date) (unknown) (unknown) fracture. (units unknown) (unknown) (unknown) (no date) (unknown) (unknown) household memb ers: none (units unknown) (unknown) (unknown) (no date) (unknown) (unknown) imaging t to (units unknown) (unknown) (unknown) (no date) (unknown) (unknown) matter chronic small vessel ischemic changes.? Areas of remote lacunar infarcts (units unknown) (unknown) (unknown) (no date) (unknown) (unknown) no loss of consciousness. She is no neck pain. She did sustain some bruising (units unknown) (unknown) (unknown) (no date) (unknown) (unknown) patient (units unknown) (unknown) (unknown) (no date) (unknown) (unknown) resultant vent ricular and sulcal prominence.? There are periventricular and deep (units unknown) (unknown) (unknown) (no date) (unknown) (unknown) seen involving the basal ganglia on both sides.? There is intracranial internal (units unknown) (unknown) (unknown) (no date) (unknown) (unknown) series 2, imag e 25. No associated calvarial fracture is seen.? Calvarium and (units unknown) (unknown) (unknown) (no date) (unknown) (unknown) size.? (units unknown) (unknown) (unknown) (no date) (unknown) (unknown) sustained when she was throwing some garbage into a dumpster. She states she (units unknown) (unknown) (unknown) (no date) (unknown) (unknown) tenderness (units unknown) (unknown) (unknown) (no date) (unknown) (unknown) to her left kn ee and her right elbow. She was placed in a sling in triage. (units unknown) (unknown) (unknown) (no date) (unknown) (unknown) to the (units unknown) (unknown) (unknown) (no date) (unknown) (unknown) turned around. She thinks she got her feet caught on something on the ground (units unknown) (unknown) (unknown) (no date) (unknown) (unknown) ventricles are symmetric in size and shape.? (units unknown) (unknown) (unknown) (no date) (unknown) (unknown) vertex, with c oronal and sagittal reformats.? For radiation dose reduction, the (units unknown) (unknown) (unknown) (no date) (unknown) (unknown) visualized (units unknown) (unknown) (unknown) (no date) (unknown) (unknown) was used:? aut omated exposure control, adjustment of mA and/or kV according to (units unknown) (unknown) (unknown) (no date) (unknown) (unknown) white (units unknown) (unknown) Result panel 4 (unknown) (no date) (unknown) (unknown) (no value) (units unknown) (unknown) (unknown) (no date) (unknown) (unknown) [id number] (units unknown) (unknown) (unknown) (no date) (unknown) (unknown) 08/15/22 (units unknown) (unknown) (unknown) (no date) (unknown) (unknown) [address] [place] [address] (un its unknown) (unknown) (unknown) (no date) (unknown) (unknown) Accession Numb er: [id number] (units unknown) (unknown) (unknown) (no date) (unknown) (unknown) Age/Sex: 77 / F Date of Service: (units unknown) (unknown) (unknown) (no date) (unknown) (unknown) [place] [address] (units unknown) (unknown) (unknown) (no date) (unknown) (unknown) Approved by: Alycia Buenrostro M.D. on 08/15/2022 at 16:21 (units unknown) (unknown) (unknown) (no date) (unknown) (unknown) Bones: The lef t shoulder has now been relocated. (units unknown) (unknown) (unknown) (no date) (unknown) (unknown) COMPARISON: [facility], CR, XR SHOULDER LT MIN 2V, 08/15/2022, 15:00. (units unknown) (unknown) (unknown) (no date) (unknown) (unknown) : 3 Acct:[id number] (units unknown) (unknown) (unknown) (no date) (unknown) (unknown) Dictated by: Alycia Buenrostro M.D. on 08/15/2022 at 16:21 (units unknown) (unknown) (unknown) (no date) (unknown) (unknown) FINDINGS: (units unknown) (unknown) (unknown) (no date) (unknown) (unknown) Hospital, CT, CT HEAD/BRAIN WO CON, 08/15/2022, 15:03. (units unknown) (unknown) (unknown) (no date) (unknown) (unknown) IMPRESSION: In terval relocation of the left shoulder, without a fracture (units unknown) (unknown) (unknown) (no date) (unknown) (unknown) INDICATIONS: Reducti on (units unknown) (unknown) (unknown) (no date) (unknown) (unknown) If it would be helpful for clinical management decision making, please consider (units unknown) (unknown) (unknown) (no date) (unknown) (unknown) [facility] (uni ts unknown) (unknown) (unknown) (no date) (unknown) (unknown) [place] (units unknown) (unknown) (unknown) (no date) (unknown) (unknown) Loc: ED (units unknown) (unknown) (unknown) (no date) (unknown) (unknown) No displaced f ractures are seen. Age-appropriate bony degenerative changes are (units unknown) (unknown) (unknown) (no date) (unknown) (unknown) Ordering Provdwayne yoko: Regulo Joseph D.O. (units unknown) (unknown) (unknown) (no date) (unknown) (unknown) PROCEDURE: XR SHOULDER LT MIN 2V (units unknown) (unknown) (unknown) (no date) (unknown) (unknown) Patient: Megan Washington MR#: [id number] (units unknown) (unknown) (unknown) (no date) (unknown) (unknown) Procedure: XR shoulder LT min 2V (units unknown) (unknown) (unknown) (no date) (unknown) (unknown) Signed (units unknown) (unknown) (unknown) (no date) (unknown) (unknown) Soft tissues: No suspicious soft tissue calcifications. The visualized lung (units unknown) (unknown) (unknown) (no date) (unknown) (unknown) TECHNIQUE: 2 v iews of the shoulder were acquired. (units unknown) (unknown) (unknown) (no date) (unknown) (unknown) XRay Report (units unknown) (unknown) (unknown) (no date) (unknown) (unknown) a (units unknown) (unknown) (unknown) (no date) (unknown) (unknown) contraindication). ( units unknown) (unknown) (unknown) (no date) (unknown) (unknown) dedicated, jacki eduled shoulder MRI for further evaluation (assuming that there is (units unknown) (unknown) (unknown) (no date) (unknown) (unknown) demonstrates a n unremarkable appearance. (units unknown) (unknown) (unknown) (no date) (unknown) (unknown) identified. (units unknown) (unknown) (unknown) (no date) (unknown) (unknown) no (units unknown) (unknown) (unknown) (no date) (unknown) (unknown) seen. (units unknown) (unknown) Result panel 5 (unknown) (no date) (unknown) (unknown) (no value) (units unknown) (unknown) (unknown) (no date) (unknown) (unknown) [id number] (units unknown) (unknown) (unknown) (no date) (unknown) (unknown) 08/15/22 14:57 (unit s unknown) (unknown) (unknown) (no date) (unknown) (unknown) 08/15/22 16:46 (unit s unknown) (unknown) (unknown) (no date) (unknown) (unknown) 08/15/22 (units unknown) (unknown) (unknown) (no date) (unknown) (unknown) 1 cm laceratio n to forehead. Contusion to anterior left knee. (units unknown) (unknown) (unknown) (no date) (unknown) (unknown) 11:00. (units unknown) (unknown) (unknown) (no date) (unknown) (unknown) 14:40 08/15/22 (unit s unknown) (unknown) (unknown) (no date) (unknown) (unknown) 14:52 08/15/22 (unit s unknown) (unknown) (unknown) (no date) (unknown) (unknown) 14:53 08/15/22 (unit s unknown) (unknown) (unknown) (no date) (unknown) (unknown) 14:53 (units unknown) (unknown) (unknown) (no date) (unknown) (unknown) 15:00 08/15/22 (unit s unknown) (unknown) (unknown) (no date) (unknown) (unknown) 15:25 08/15/22 (unit s unknown) (unknown) (unknown) (no date) (unknown) (unknown) 15:25 (units unknown) (unknown) (unknown) (no date) (unknown) (unknown) 15:30 08/15/22 (unit s unknown) (unknown) (unknown) (no date) (unknown) (unknown) 15:30 (units unknown) (unknown) (unknown) (no date) (unknown) (unknown) 15:45 08/15/22 (unit s unknown) (unknown) (unknown) (no date) (unknown) (unknown) 16:30 (units unknown) (unknown) (unknown) (no date) (unknown) (unknown) 16:31 08/15/22 (unit s unknown) (unknown) (unknown) (no date) (unknown) (unknown) 16:45 08/15/22 (unit s unknown) (unknown) (unknown) (no date) (unknown) (unknown) 16:45 (units unknown) (unknown) (unknown) (no date) (unknown) (unknown) 16:50 08/15/22 (unit s unknown) (unknown) (unknown) (no date) (unknown) (unknown) 16:50 (units unknown) (unknown) (unknown) (no date) (unknown) (unknown) 16:55 08/15/22 (unit s unknown) (unknown) (unknown) (no date) (unknown) (unknown) 17:00 08/15/22 (unit s unknown) (unknown) (unknown) (no date) (unknown) (unknown) 17:00 (units unknown) (unknown) (unknown) (no date) (unknown) (unknown) 17:05 08/15/22 (unit s unknown) (unknown) (unknown) (no date) (unknown) (unknown) 17:05 (units unknown) (unknown) (unknown) (no date) (unknown) (unknown) 17:10 08/15/22 (unit s unknown) (unknown) (unknown) (no date) (unknown) (unknown) 17:10 (units unknown) (unknown) (unknown) (no date) (unknown) (unknown) 17:17 08/15/22 (unit s unknown) (unknown) (unknown) (no date) (unknown) (unknown) 17:20 08/15/22 (unit s unknown) (unknown) (unknown) (no date) (unknown) (unknown) 17:20 (units unknown) (unknown) (unknown) (no date) (unknown) (unknown) 17:25 08/15/22 (unit s unknown) (unknown) (unknown) (no date) (unknown) (unknown) 17:32 08/15/22 (unit s unknown) (unknown) (unknown) (no date) (unknown) (unknown) 17:32 (units unknown) (unknown) (unknown) (no date) (unknown) (unknown) ? (units unknown) (unknown) (unknown) (no date) (unknown) (unknown) ASA Class: II (units unknown) (unknown) (unknown) (no date) (unknown) (unknown) Age/Sex: 77 / F (uni ts unknown) (unknown) (unknown) (no date) (unknown) (unknown) Allergies (units unknown) (unknown) (unknown) (no date) (unknown) (unknown) Allergy/AdvRea c Type Severity Reaction Status Date / Time (units unknown) (unknown) (unknown) (no date) (unknown) (unknown) Altered level of conciousness present: No (units unknown) (unknown) (unknown) (no date) (unknown) (unknown) Amount of anes thesia used (mL): 2 (units unknown) (unknown) (unknown) (no date) (unknown) (unknown) Analgesia: pro cedural sedation (units unknown) (unknown) (unknown) (no date) (unknown) (unknown) Auscultation: clear to auscultation bilaterally (units unknown) (unknown) (unknown) (no date) (unknown) (unknown) Back/Spine/Pelvis (u nits unknown) (unknown) (unknown) (no date) (unknown) (unknown) Bandage was pl aced over the cut to her forehead. (units unknown) (unknown) (unknown) (no date) (unknown) (unknown) Bedside Urine Bilirubin - Negative (units unknown) (unknown) (unknown) (no date) (unknown) (unknown) Bedside Urine Glucose Negative (units unknown) (unknown) (unknown) (no date) (unknown) (unknown) Bedside Urine Ketone - Negative (units unknown) (unknown) (unknown) (no date) (unknown) (unknown) Bedside Urine Leukocytes + 70 (units unknown) (unknown) (unknown) (no date) (unknown) (unknown) Bedside Urine Nitrite + Positive (units unknown) (unknown) (unknown) (no date) (unknown) (unknown) Bedside Urine Occult Blood +/ (units unknown) (unknown) (unknown) (no date) (unknown) (unknown) Bedside Urine Protein - Negative (units unknown) (unknown) (unknown) (no date) (unknown) (unknown) Bedside Urine Urobilinogen - Negative (units unknown) (unknown) (unknown) (no date) (unknown) (unknown) Bedside Urine pH 6.5 (units unknown) (unknown) (unknown) (no date) (unknown) (unknown) Blood Pressure 175/76 H (units unknown) (unknown) (unknown) (no date) (unknown) (unknown) Blood Pressure 187/80 H (units unknown) (unknown) (unknown) (no date) (unknown) (unknown) Blood Pressure 200/92 H 183/84 H (units unknown) (unknown) (unknown) (no date) (unknown) (unknown) Blood Pressure 215/98 H (units unknown) (unknown) (unknown) (no date) (unknown) (unknown) Blood Pressure 218/91 H 204/91 H (units unknown) (unknown) (unknown) (no date) (unknown) (unknown) Blood Pressure 222/97 H (units unknown) (unknown) (unknown) (no date) (unknown) (unknown) Blood Pressure 226/97 H 223/100 H (units unknown) (unknown) (unknown) (no date) (unknown) (unknown) Blood Pressure 229/103 H 220/98 H (units unknown) (unknown) (unknown) (no date) (unknown) (unknown) Blood Pressure 236/105 H 08/15/ 14:40 (units unknown) (unknown) (unknown) (no date) (unknown) (unknown) Blood Pressure 236/105 H (units unknown) (unknown) (unknown) (no date) (unknown) (unknown) Blood Pressure 237/106 H (units unknown) (unknown) (unknown) (no date) (unknown) (unknown) Bones:? Anteri or inferior left shoulder dislocation.? Mild AC degenerative (units unknown) (unknown) (unknown) (no date) (unknown) (unknown) Bones:? The le ft shoulder has now been relocated. (units unknown) (unknown) (unknown) (no date) (unknown) (unknown) Brain:? No intracranial bleeds or masses.? There is cerebral volume loss for (units unknown) (unknown) (unknown) (no date) (unknown) (unknown) COMPARISON:? [facility], CR, SHOULDER MINIMUM 2VIEW RIGHT, 07/11/2014, (units unknown) (unknown) (unknown) (no date) (unknown) (unknown) COMPARISON:? [facility], CR, XR SHOULDER LT MIN 2V, 08/15/2022, 15:00.? (units unknown) (unknown) (unknown) (no date) (unknown) (unknown) COMPARISON:? [facility], CT, HEAD WITHOUT CONTRAST, 07/11/2014, 11:08. (units unknown) (unknown) (unknown) (no date) (unknown) (unknown) CSF spaces:? B elvie cisterns are patent.? No extra-axial fluid collections.? The (units unknown) (unknown) (unknown) (no date) (unknown) (unknown) CT head/brain wo con Stat (units unknown) (unknown) (unknown) (no date) (unknown) (unknown) CT scan - head: (uni ts unknown) (unknown) (unknown) (no date) (unknown) (unknown) Cardio (units unknown) (unknown) (unknown) (no date) (unknown) (unknown) Cardiovascular (unit s unknown) (unknown) (unknown) (no date) (unknown) (unknown) Cardiovascular : Reports system reviewed and no additional complaints, except as (units unknown) (unknown) (unknown) (no date) (unknown) (unknown) Cervical Spine : No cervical muscular tenderness and No cervical spinal (units unknown) (unknown) (unknown) (no date) (unknown) (unknown) Chest (units unknown) (unknown) (unknown) (no date) (unknown) (unknown) Chest: No crep itus and No tenderness (units unknown) (unknown) (unknown) (no date) (unknown) (unknown) Chief complaint: Fal l (units unknown) (unknown) (unknown) (no date) (unknown) (unknown) Complications: none (units unknown) (unknown) (unknown) (no date) (unknown) (unknown) Consent signed: Yes (units unknown) (unknown) (unknown) (no date) (unknown) (unknown) Const (units unknown) (unknown) (unknown) (no date) (unknown) (unknown) Constitutional (unit s unknown) (unknown) (unknown) (no date) (unknown) (unknown) Constitutional : Reports system reviewed and no additional complaints, except as (units unknown) (unknown) (unknown) (no date) (unknown) (unknown) Course (units unknown) (unknown) (unknown) (no date) (unknown) (unknown) : 3 Acct:[id number] (units unknown) (unknown) (unknown) (no date) (unknown) (unknown) Date of Servic e: 08/15/22 (units unknown) (unknown) (unknown) (no date) (unknown) (unknown) Departure (units unknown) (unknown) (unknown) (no date) (unknown) (unknown) Depth: simple, single layer (units unknown) (unknown) (unknown) (no date) (unknown) (unknown) Cari Kuo PA-C [Primary Care Provider] (units unknown) (unknown) (unknown) (no date) (unknown) (unknown) Description: linear (units unknown) (unknown) (unknown) (no date) (unknown) (unknown) Discharge Plan (unit s unknown) (unknown) (unknown) (no date) (unknown) (unknown) Discomfort to the left shoulder. Tingling to the left little finger. (units unknown) (unknown) (unknown) (no date) (unknown) (unknown) Discontinued Medications (units unknown) (unknown) (unknown) (no date) (unknown) (unknown) Distracting In jury Present: No (units unknown) (unknown) (unknown) (no date) (unknown) (unknown) Documented By: AT (u nits unknown) (unknown) (unknown) (no date) (unknown) (unknown) ED Orders (units unknown) (unknown) (unknown) (no date) (unknown) (unknown) ED Sedation Le alissa: Moderate (Concious) (units unknown) (unknown) (unknown) (no date) (unknown) (unknown) ENT (units unknown) (unknown) (unknown) (no date) (unknown) (unknown) ER Physician: Lanker,Regulo D.O. (units unknown) (unknown) (unknown) (no date) (unknown) (unknown) Ears, Nose, Mo uth, and Throat: Reports system reviewed and no additional (units unknown) (unknown) (unknown) (no date) (unknown) (unknown) Effort + Inspe ction: normal respiratory effort (units unknown) (unknown) (unknown) (no date) (unknown) (unknown) Emergency Report (un its unknown) (unknown) (unknown) (no date) (unknown) (unknown) Esterase (units unknown) (unknown) (unknown) (no date) (unknown) (unknown) Exam (units unknown) (unknown) (unknown) (no date) (unknown) (unknown) Extrem (units unknown) (unknown) (unknown) (no date) (unknown) (unknown) Extremity x-ray #1: (units unknown) (unknown) (unknown) (no date) (unknown) (unknown) Extremity x-ray #2: (units unknown) (unknown) (unknown) (no date) (unknown) (unknown) FINDINGS:? (units unknown) (unknown) (unknown) (no date) (unknown) (unknown) Focal Neurolog ic deficit present: No (units unknown) (unknown) (unknown) (no date) (unknown) (unknown) GCS (units unknown) (unknown) (unknown) (no date) (unknown) (unknown) Gastrointestinal (un its unknown) (unknown) (unknown) (no date) (unknown) (unknown) Gastrointestin al: Reports system reviewed and no additional complaints, except (units unknown) (unknown) (unknown) (no date) (unknown) (unknown) General (units unknown) (unknown) (unknown) (no date) (unknown) (unknown) General: coope rative, comfortable and No ill appearing (units unknown) (unknown) (unknown) (no date) (unknown) (unknown) General: patie nt alert, patient awake and patient oriented x3 (units unknown) (unknown) (unknown) (no date) (unknown) (unknown) [place] coma s [place] eye opening: Spontaneous (units unknown) (unknown) (unknown) (no date) (unknown) (unknown) [place] coma s da[place] motor response: Obey commands (units unknown) (unknown) (unknown) (no date) (unknown) (unknown) [place] coma s da[place] total score: 15 (units unknown) (unknown) (unknown) (no date) (unknown) (unknown) [place] coma s daren verbal response: Orientated (units unknown) (unknown) (unknown) (no date) (unknown) (unknown) HENMT (units unknown) (unknown) (unknown) (no date) (unknown) (unknown) HPI - General Adult (units unknown) (unknown) (unknown) (no date) (unknown) (unknown) HPI narrative: (unit s unknown) (unknown) (unknown) (no date) (unknown) (unknown) Head: contusio n and laceration (Forehead) (units unknown) (unknown) (unknown) (no date) (unknown) (unknown) Hematologic/Lymphati c (units unknown) (unknown) (unknown) (no date) (unknown) (unknown) History of Pre sent Illness (units unknown) (unknown) (unknown) (no date) (unknown) (unknown) Hospital, CT, CT HEAD/BRAIN WO CON, 08/15/2022, 15:03. (units unknown) (unknown) (unknown) (no date) (unknown) (unknown) Hx of appendectomy ( units unknown) (unknown) (unknown) (no date) (unknown) (unknown) Hypertension (units unknown) (unknown) (unknown) (no date) (unknown) (unknown) IMPRESSION:? A nterior shoulder dislocation.? Please consider post relocation (units unknown) (unknown) (unknown) (no date) (unknown) (unknown) IMPRESSION:? I nterval relocation of the left shoulder, without a fracture (units unknown) (unknown) (unknown) (no date) (unknown) (unknown) IMPRESSION:? M ild left scalp hematoma seen, without an associated calvarial (units unknown) (unknown) (unknown) (no date) (unknown) (unknown) INDICATIONS:? Reduction (units unknown) (unknown) (unknown) (no date) (unknown) (unknown) INDICATIONS:? fall/hit head (units unknown) (unknown) (unknown) (no date) (unknown) (unknown) INDICATIONS:? fall/pain (units unknown) (unknown) (unknown) (no date) (unknown) (unknown) If it would be helpful for clinical management decision making, please consider (units unknown) (unknown) (unknown) (no date) (unknown) (unknown) Image quality: ? There is artifact associated with the metallic earrings. ? (units unknown) (unknown) (unknown) (no date) (unknown) (unknown) Imaging Data (units unknown) (unknown) (unknown) (no date) (unknown) (unknown) Indication: fracture/dislocation reduction (units unknown) (unknown) (unknown) (no date) (unknown) (unknown) Initial Vital Signs (units unknown) (unknown) (unknown) (no date) (unknown) (unknown) Initial Vital Signs: (units unknown) (unknown) (unknown) (no date) (unknown) (unknown) Injury #1: (units unknown) (unknown) (unknown) (no date) (unknown) (unknown) Integumentary/Breast s (units unknown) (unknown) (unknown) (no date) (unknown) (unknown) Intoxication p resent: No (units unknown) (unknown) (unknown) (no date) (unknown) (unknown) Intraservice time/total sedation time (min): 15 (units unknown) (unknown) (unknown) (no date) (unknown) (unknown) [place] [id number] (units unknown) (unknown) (unknown) (no date) (unknown) (unknown) [place] (units unknown) (unknown) (unknown) (no date) (unknown) (unknown) Joint #1: (units unknown) (unknown) (unknown) (no date) (unknown) (unknown) Joint Reductio n Location: shoulder (units unknown) (unknown) (unknown) (no date) (unknown) (unknown) Ketamine dose (mg): 110 (units unknown) (unknown) (unknown) (no date) (unknown) (unknown) Lab Data (units unknown) (unknown) (unknown) (no date) (unknown) (unknown) Lab results re viewed: Yes I reviewed the patient's lab results. (units unknown) (unknown) (unknown) (no date) (unknown) (unknown) Labs: (units unknown) (unknown) (unknown) (no date) (unknown) (unknown) Laceration 1: (units unknown) (unknown) (unknown) (no date) (unknown) (unknown) Laceration Repair (u nits unknown) (unknown) (unknown) (no date) (unknown) (unknown) Last Admin: 16:38 Dose: 125 mls/hr (units unknown) (unknown) (unknown) (no date) (unknown) (unknown) Last Admin: 16:40 Dose: 100 mg (units unknown) (unknown) (unknown) (no date) (unknown) (unknown) Last Admin: 16:53 Dose: 10 mg (units unknown) (unknown) (unknown) (no date) (unknown) (unknown) Local Anesthet ic: lidocaine 1% and with epi (units unknown) (unknown) (unknown) (no date) (unknown) (unknown) Mallampati Air way Classification: Class II (units unknown) (unknown) (unknown) (no date) (unknown) (unknown) Medical Decisi on Making (units unknown) (unknown) (unknown) (no date) (unknown) (unknown) Medical Histor y (units unknown) (unknown) (unknown) (no date) (unknown) (unknown) Midline spinal tenderness present: No (units unknown) (unknown) (unknown) (no date) (unknown) (unknown) Mode of arriva l: Ambulatory (units unknown) (unknown) (unknown) (no date) (unknown) (unknown) Neuro (units unknown) (unknown) (unknown) (no date) (unknown) (unknown) Neurologic (units unknown) (unknown) (unknown) (no date) (unknown) (unknown) Neurologic: Re ports system reviewed and no additional complaints, except as (units unknown) (unknown) (unknown) (no date) (unknown) (unknown) Nexus Criteria for C-spine: 0 (units unknown) (unknown) (unknown) (no date) (unknown) (unknown) Nexus Score fo r C-Spine (units unknown) (unknown) (unknown) (no date) (unknown) (unknown) No acute intra cranial hemorrhage is seen.? (units unknown) (unknown) (unknown) (no date) (unknown) (unknown) No acute intra cranial process is seen. (units unknown) (unknown) (unknown) (no date) (unknown) (unknown) No displaced f ractures are seen.? Age-appropriate bony degenerative changes are (units unknown) (unknown) (unknown) (no date) (unknown) (unknown) Noncontrast 4. 5 mm thick angled axial sections acquired from the foramen magnum (units unknown) (unknown) (unknown) (no date) (unknown) (unknown) Number of sutures: 2 (units unknown) (unknown) (unknown) (no date) (unknown) (unknown) On Anticoagulants: Y es (units unknown) (unknown) (unknown) (no date) (unknown) (unknown) Ordered: (units unknown) (unknown) (unknown) (no date) (unknown) (unknown) Orders (units unknown) (unknown) (unknown) (no date) (unknown) (unknown) Orthopedic Salena nt Reduction (units unknown) (unknown) (unknown) (no date) (unknown) (unknown) Orthopedic Splinting/Casting (units unknown) (unknown) (unknown) (no date) (unknown) (unknown) Other: (units unknown) (unknown) (unknown) (no date) (unknown) (unknown) Oxygen Deliver y Method Nasal Cannula Nasal Cannula (units unknown) (unknown) (unknown) (no date) (unknown) (unknown) Oxygen Deliver y Method Nasal Cannula (units unknown) (unknown) (unknown) (no date) (unknown) (unknown) Oxygen Deliver y Method Room Air 08/15/22 14:40 (units unknown) (unknown) (unknown) (no date) (unknown) (unknown) Oxygen Deliver y Method Room Air (units unknown) (unknown) (unknown) (no date) (unknown) (unknown) Oxygen Delivery Meth od (units unknown) (unknown) (unknown) (no date) (unknown) (unknown) Oxygen Flow Rate 2 2 (units unknown) (unknown) (unknown) (no date) (unknown) (unknown) Oxygen Flow Rate 2 ( units unknown) (unknown) (unknown) (no date) (unknown) (unknown) Oxygen Flow Rate (un its unknown) (unknown) (unknown) (no date) (unknown) (unknown) PROCEDURE:? XR SHOULDER LT MIN 2V (units unknown) (unknown) (unknown) (no date) (unknown) (unknown) Patient History (uni ts unknown) (unknown) (unknown) (no date) (unknown) (unknown) Patient Tolera manoj Procedure: Well (units unknown) (unknown) (unknown) (no date) (unknown) (unknown) Patient is a 77-year-old female who is here for evaluation of injuries that she (units unknown) (unknown) (unknown) (no date) (unknown) (unknown) Patient: Megan Washington MR#: [id number] (units unknown) (unknown) (unknown) (no date) (unknown) (unknown) Placed by: Provider (units unknown) (unknown) (unknown) (no date) (unknown) (unknown) Point of Care Testin g (units unknown) (unknown) (unknown) (no date) (unknown) (unknown) Point of care testin g: (units unknown) (unknown) (unknown) (no date) (unknown) (unknown) Post Reduction X-Ray Obtained: Yes (units unknown) (unknown) (unknown) (no date) (unknown) (unknown) Post Reduction X-Ray Results: reduced (units unknown) (unknown) (unknown) (no date) (unknown) (unknown) Post splinting neuro exam: no change (units unknown) (unknown) (unknown) (no date) (unknown) (unknown) Post splinting vascular exam: no change (units unknown) (unknown) (unknown) (no date) (unknown) (unknown) Post-reduction neuro exam: no change (units unknown) (unknown) (unknown) (no date) (unknown) (unknown) Post-reduction vascular: no change (units unknown) (unknown) (unknown) (no date) (unknown) (unknown) Pre-repair: wo und explored (units unknown) (unknown) (unknown) (no date) (unknown) (unknown) Test Results Not applicable (units unknown) (unknown) (unknown) (no date) (unknown) (unknown) Preparation: c ardiac monitor applied, pulse oximeter, capnometry used, (units unknown) (unknown) (unknown) (no date) (unknown) (unknown) Procedural Sedation (units unknown) (unknown) (unknown) (no date) (unknown) (unknown) Procedures (units unknown) (unknown) (unknown) (no date) (unknown) (unknown) Propofol (Prop ofol 200 Mg/20 Ml Vial) 10 mg IV NOW ONE (units unknown) (unknown) (unknown) (no date) (unknown) (unknown) Propofol (Prop ofol 200 Mg/20 Ml Vial) 100 mg IV NOW ONE (units unknown) (unknown) (unknown) (no date) (unknown) (unknown) Pulse Oximetry 93 (u nits unknown) (unknown) (unknown) (no date) (unknown) (unknown) Pulse Oximetry 94 92 (units unknown) (unknown) (unknown) (no date) (unknown) (unknown) Pulse Oximetry 95 92 (units unknown) (unknown) (unknown) (no date) (unknown) (unknown) Pulse Oximetry 95 96 (units unknown) (unknown) (unknown) (no date) (unknown) (unknown) Pulse Oximetry 95 (u nits unknown) (unknown) (unknown) (no date) (unknown) (unknown) Pulse Oximetry 96 95 (units unknown) (unknown) (unknown) (no date) (unknown) (unknown) Pulse Oximetry 96 (u nits unknown) (unknown) (unknown) (no date) (unknown) (unknown) Pulse Oximetry 97 08/15/22 14:40 (units unknown) (unknown) (unknown) (no date) (unknown) (unknown) Pulse Oximetry 97 94 95 (units unknown) (unknown) (unknown) (no date) (unknown) (unknown) Pulse Oximetry 97 95 (units unknown) (unknown) (unknown) (no date) (unknown) (unknown) Pulse Rate 101 H (un its unknown) (unknown) (unknown) (no date) (unknown) (unknown) Pulse Rate 103 H 109 H (units unknown) (unknown) (unknown) (no date) (unknown) (unknown) Pulse Rate 85 81 (un its unknown) (unknown) (unknown) (no date) (unknown) (unknown) Pulse Rate 86 (units unknown) (unknown) (unknown) (no date) (unknown) (unknown) Pulse Rate 89 08/15/22 14:40 (units unknown) (unknown) (unknown) (no date) (unknown) (unknown) Pulse Rate 89 93 H 8 9 (units unknown) (unknown) (unknown) (no date) (unknown) (unknown) Pulse Rate 92 H 95 H (units unknown) (unknown) (unknown) (no date) (unknown) (unknown) Pulse Rate 92 H (uni ts unknown) (unknown) (unknown) (no date) (unknown) (unknown) Pulse Rate 93 H 90 ( units unknown) (unknown) (unknown) (no date) (unknown) (unknown) Pulse Rate 94 H 97 H (units unknown) (unknown) (unknown) (no date) (unknown) (unknown) Pulse Rate 94 H (uni ts unknown) (unknown) (unknown) (no date) (unknown) (unknown) Pulse Rate 95 H 94 H (units unknown) (unknown) (unknown) (no date) (unknown) (unknown) ROCEDURE:? CT HEAD/BRAIN WO CON (units unknown) (unknown) (unknown) (no date) (unknown) (unknown) Radiologist's Impression: (units unknown) (unknown) (unknown) (no date) (unknown) (unknown) Rate: regular rate ( units unknown) (unknown) (unknown) (no date) (unknown) (unknown) Referrals: (units unknown) (unknown) (unknown) (no date) (unknown) (unknown) Related Data (units unknown) (unknown) (unknown) (no date) (unknown) (unknown) Resp (units unknown) (unknown) (unknown) (no date) (unknown) (unknown) Respiratory Ra te 16 08/15/22 14:40 (units unknown) (unknown) (unknown) (no date) (unknown) (unknown) Respiratory Rate 16 (units unknown) (unknown) (unknown) (no date) (unknown) (unknown) Respiratory Rate 18 24 (units unknown) (unknown) (unknown) (no date) (unknown) (unknown) Respiratory Ra te 29 H 26 H (units unknown) (unknown) (unknown) (no date) (unknown) (unknown) Respiratory Rate 30 H (units unknown) (unknown) (unknown) (no date) (unknown) (unknown) Respiratory Ra te 31 H 37 H (units unknown) (unknown) (unknown) (no date) (unknown) (unknown) Respiratory Rate 38 H (units unknown) (unknown) (unknown) (no date) (unknown) (unknown) Respiratory Rate 59 H (units unknown) (unknown) (unknown) (no date) (unknown) (unknown) Respiratory Rate (un its unknown) (unknown) (unknown) (no date) (unknown) (unknown) Respiratory (units unknown) (unknown) (unknown) (no date) (unknown) (unknown) Respiratory: R eports system reviewed and no additional complaints, except as (units unknown) (unknown) (unknown) (no date) (unknown) (unknown) Review of Systems (u nits unknown) (unknown) (unknown) (no date) (unknown) (unknown) Rhythm: regular rhyt hm (units unknown) (unknown) (unknown) (no date) (unknown) (unknown) Scores (units unknown) (unknown) (unknown) (no date) (unknown) (unknown) Shoulder Techn ique Used (if applicable): Milch (units unknown) (unknown) (unknown) (no date) (unknown) (unknown) Side (If appli cable): left (units unknown) (unknown) (unknown) (no date) (unknown) (unknown) Side: left (units unknown) (unknown) (unknown) (no date) (unknown) (unknown) Signed By: (units unknown) (unknown) (unknown) (no date) (unknown) (unknown) Sinuses:? Visu alized sinuses and mastoids are clear.? (units unknown) (unknown) (unknown) (no date) (unknown) (unknown) Site: face (Forehead ) (units unknown) (unknown) (unknown) (no date) (unknown) (unknown) Size (cm): 1 (units unknown) (unknown) (unknown) (no date) (unknown) (unknown) Skin layer malia sed with: nylon (units unknown) (unknown) (unknown) (no date) (unknown) (unknown) Skin (units unknown) (unknown) (unknown) (no date) (unknown) (unknown) Skin/Breast: R eports system reviewed and no additional complaints, except as (units unknown) (unknown) (unknown) (no date) (unknown) (unknown) Skull and face :? There is a mild scalp hematoma seen anteriorly and on the left, (units unknown) (unknown) (unknown) (no date) (unknown) (unknown) Smoking Status : Former smoker (units unknown) (unknown) (unknown) (no date) (unknown) (unknown) Social History (units unknown) (unknown) (unknown) (no date) (unknown) (unknown) Sodium Chlorid e (Normal Saline 0.9%) 1,000 mls @ 125 mls/hr IV CONT JACKI (units unknown) (unknown) (unknown) (no date) (unknown) (unknown) Soft tissues:? No suspicious soft tissue calcifications.? The visualized lung (units unknown) (unknown) (unknown) (no date) (unknown) (unknown) Soft tissues:? No suspicious soft tissue calcifications.? (units unknown) (unknown) (unknown) (no date) (unknown) (unknown) Source: patient (uni ts unknown) (unknown) (unknown) (no date) (unknown) (unknown) Splint Applied: No ( units unknown) (unknown) (unknown) (no date) (unknown) (unknown) Stated complai nt: fall, head wound, left arm and shoulder pain (units unknown) (unknown) (unknown) (no date) (unknown) (unknown) Stop: 08/15/22 16:13 (units unknown) (unknown) (unknown) (no date) (unknown) (unknown) Stop: 08/15/22 17:09 (units unknown) (unknown) (unknown) (no date) (unknown) (unknown) Substance Use Type: does not use (units unknown) (unknown) (unknown) (no date) (unknown) (unknown) Surgical Histo ry (units unknown) (unknown) (unknown) (no date) (unknown) (unknown) TECHNIQUE:? 2 views of the shoulder were acquired.? (units unknown) (unknown) (unknown) (no date) (unknown) (unknown) TECHNIQUE:? 3 views of the shoulder were acquired.? (units unknown) (unknown) (unknown) (no date) (unknown) (unknown) TECHNIQUE:? (units unknown) (unknown) (unknown) (no date) (unknown) (unknown) Technique: sim ple, interrupted (units unknown) (unknown) (unknown) (no date) (unknown) (unknown) Temperature 98 .6 F 08/15/22 14:40 (units unknown) (unknown) (unknown) (no date) (unknown) (unknown) Temperature 98.6 F ( units unknown) (unknown) (unknown) (no date) (unknown) (unknown) Temperature (units unknown) (unknown) (unknown) (no date) (unknown) (unknown) Tetanus Toxoid Allergy Unknown Uncoded 07/12/17 12:14 (units unknown) (unknown) (unknown) (no date) (unknown) (unknown) Time Out Perfo rmed: Yes (units unknown) (unknown) (unknown) (no date) (unknown) (unknown) Time Seen by [place]: 08/15/22 15:06 (units unknown) (unknown) (unknown) (no date) (unknown) (unknown) Upper Extremit y Immobilizer: sling/shoulder immobilizer (units unknown) (unknown) (unknown) (no date) (unknown) (unknown) Upper Extremit y Injury Location: shoulder (units unknown) (unknown) (unknown) (no date) (unknown) (unknown) Urine Dip (units unknown) (unknown) (unknown) (no date) (unknown) (unknown) Urine Specific [place] 1.015 (units unknown) (unknown) (unknown) (no date) (unknown) (unknown) Vital Signs - 8 hr ( units unknown) (unknown) (unknown) (no date) (unknown) (unknown) Vital Signs (units unknown) (unknown) (unknown) (no date) (unknown) (unknown) Vital signs: (units unknown) (unknown) (unknown) (no date) (unknown) (unknown) XR shoulder LT min 2V Stat (units unknown) (unknown) (unknown) (no date) (unknown) (unknown) a (units unknown) (unknown) (unknown) (no date) (unknown) (unknown) age, with (units unknown) (unknown) (unknown) (no date) (unknown) (unknown) alcohol intake: karoline yang (units unknown) (unknown) (unknown) (no date) (unknown) (unknown) and fell [address] and hit her head and also injured her left shoulder. There was (units unknown) (unknown) (unknown) (no date) (unknown) (unknown) artery atherosclerosis.? (units unknown) (unknown) (unknown) (no date) (unknown) (unknown) as documented (units unknown) (unknown) (unknown) (no date) (unknown) (unknown) as on (units unknown) (unknown) (unknown) (no date) (unknown) (unknown) can be (units unknown) (unknown) (unknown) (no date) (unknown) (unknown) carotid (units unknown) (unknown) (unknown) (no date) (unknown) (unknown) changes. (units unknown) (unknown) (unknown) (no date) (unknown) (unknown) complaints, ex cept as documented (units unknown) (unknown) (unknown) (no date) (unknown) (unknown) contraindication).? (units unknown) (unknown) (unknown) (no date) (unknown) (unknown) dedicated, [facility] shoulder MRI for further evaluation (assuming that there is (units unknown) (unknown) (unknown) (no date) (unknown) (unknown) demonstrates a n unremarkable appearance. (units unknown) (unknown) (unknown) (no date) (unknown) (unknown) documented (units unknown) (unknown) (unknown) (no date) (unknown) (unknown) evaluate any underlying [place] or [place] fractures. (units unknown) (unknown) (unknown) (no date) (unknown) (unknown) facial bones a ppear intact, without suspicious lesions.? (units unknown) (unknown) (unknown) (no date) (unknown) (unknown) following (units unknown) (unknown) (unknown) (no date) (unknown) (unknown) fracture. (units unknown) (unknown) (unknown) (no date) (unknown) (unknown) household memb ers: none (units unknown) (unknown) (unknown) (no date) (unknown) (unknown) identified. (units unknown) (unknown) (unknown) (no date) (unknown) (unknown) imaging t to (units unknown) (unknown) (unknown) (no date) (unknown) (unknown) matter chronic small vessel ischemic changes.? Areas of remote lacunar infarcts (units unknown) (unknown) (unknown) (no date) (unknown) (unknown) no loss of consciousness. She is no neck pain. She did sustain some bruising (units unknown) (unknown) (unknown) (no date) (unknown) (unknown) no (units unknown) (unknown) (unknown) (no date) (unknown) (unknown) patient (units unknown) (unknown) (unknown) (no date) (unknown) (unknown) resultant vent ricular and sulcal prominence.? There are periventricular and deep (units unknown) (unknown) (unknown) (no date) (unknown) (unknown) seen involving the basal ganglia on both sides.? There is intracranial internal (units unknown) (unknown) (unknown) (no date) (unknown) (unknown) seen.? (units unknown) (unknown) (unknown) (no date) (unknown) (unknown) series 2, imag e 25. No associated calvarial fracture is seen.? Calvarium and (units unknown) (unknown) (unknown) (no date) (unknown) (unknown) size.? (units unknown) (unknown) (unknown) (no date) (unknown) (unknown) supplemental O 2 applied, suction/airway equipment at bedside and IV secured (units unknown) (unknown) (unknown) (no date) (unknown) (unknown) sustained when she was throwing some garbage into a dumpster. She states she (units unknown) (unknown) (unknown) (no date) (unknown) (unknown) tenderness (units unknown) (unknown) (unknown) (no date) (unknown) (unknown) to her left kn ee and her right elbow. She was placed in a sling in triage. (units unknown) (unknown) (unknown) (no date) (unknown) (unknown) to the (units unknown) (unknown) (unknown) (no date) (unknown) (unknown) turned around. She thinks she got her feet caught on something on the ground (units unknown) (unknown) (unknown) (no date) (unknown) (unknown) ventricles are symmetric in size and shape.? (units unknown) (unknown) (unknown) (no date) (unknown) (unknown) vertex, with c oronal and sagittal reformats.? For radiation dose reduction, the (units unknown) (unknown) (unknown) (no date) (unknown) (unknown) visualized (units unknown) (unknown) (unknown) (no date) (unknown) (unknown) was used:? aut omated exposure control, adjustment of mA and/or kV according to (units unknown) (unknown) (unknown) (no date) (unknown) (unknown) white (units unknown) (unknown) Result panel 6 (unknown) (no date) (unknown) (unknown) (no value) (units unknown) (unknown) (unknown) (no date) (unknown) (unknown) [id number] (units unknown) (unknown) (unknown) (no date) (unknown) (unknown) 08/15/22 14:57 (unit s unknown) (unknown) (unknown) (no date) (unknown) (unknown) 08/15/22 16:46 (unit s unknown) (unknown) (unknown) (no date) (unknown) (unknown) 08/15/22 18:08 (unit s unknown) (unknown) (unknown) (no date) (unknown) (unknown) 08/15/22 (units unknown) (unknown) (unknown) (no date) (unknown) (unknown) 1 cm laceratio n to forehead. Contusion to anterior left knee. (units unknown) (unknown) (unknown) (no date) (unknown) (unknown) 11:00. (units unknown) (unknown) (unknown) (no date) (unknown) (unknown) 14:40 08/15/22 (unit s unknown) (unknown) (unknown) (no date) (unknown) (unknown) 14:52 08/15/22 (unit s unknown) (unknown) (unknown) (no date) (unknown) (unknown) 14:53 08/15/22 (unit s unknown) (unknown) (unknown) (no date) (unknown) (unknown) 14:53 (units unknown) (unknown) (unknown) (no date) (unknown) (unknown) 15:00 08/15/22 (unit s unknown) (unknown) (unknown) (no date) (unknown) (unknown) 15:25 08/15/22 (unit s unknown) (unknown) (unknown) (no date) (unknown) (unknown) 15:25 (units unknown) (unknown) (unknown) (no date) (unknown) (unknown) 15:30 08/15/22 (unit s unknown) (unknown) (unknown) (no date) (unknown) (unknown) 15:30 (units unknown) (unknown) (unknown) (no date) (unknown) (unknown) 15:45 08/15/22 (unit s unknown) (unknown) (unknown) (no date) (unknown) (unknown) 16:30 (units unknown) (unknown) (unknown) (no date) (unknown) (unknown) 16:31 08/15/22 (unit s unknown) (unknown) (unknown) (no date) (unknown) (unknown) 16:45 08/15/22 (unit s unknown) (unknown) (unknown) (no date) (unknown) (unknown) 16:45 (units unknown) (unknown) (unknown) (no date) (unknown) (unknown) 16:50 08/15/22 (unit s unknown) (unknown) (unknown) (no date) (unknown) (unknown) 16:50 (units unknown) (unknown) (unknown) (no date) (unknown) (unknown) 16:55 08/15/22 (unit s unknown) (unknown) (unknown) (no date) (unknown) (unknown) 17:00 08/15/22 (unit s unknown) (unknown) (unknown) (no date) (unknown) (unknown) 17:00 (units unknown) (unknown) (unknown) (no date) (unknown) (unknown) 17:05 08/15/22 (unit s unknown) (unknown) (unknown) (no date) (unknown) (unknown) 17:05 (units unknown) (unknown) (unknown) (no date) (unknown) (unknown) 17:10 08/15/22 (unit s unknown) (unknown) (unknown) (no date) (unknown) (unknown) 17:10 (units unknown) (unknown) (unknown) (no date) (unknown) (unknown) 17:17 08/15/22 (unit s unknown) (unknown) (unknown) (no date) (unknown) (unknown) 17:20 08/15/22 (unit s unknown) (unknown) (unknown) (no date) (unknown) (unknown) 17:20 (units unknown) (unknown) (unknown) (no date) (unknown) (unknown) 17:25 08/15/22 (unit s unknown) (unknown) (unknown) (no date) (unknown) (unknown) 17:32 08/15/22 (unit s unknown) (unknown) (unknown) (no date) (unknown) (unknown) 17:32 (units unknown) (unknown) (unknown) (no date) (unknown) (unknown) ? (units unknown) (unknown) (unknown) (no date) (unknown) (unknown) ASA Class: II (units unknown) (unknown) (unknown) (no date) (unknown) (unknown) Activity Restrictions/Additiona l Instructions: (units unknown) (unknown) (unknown) (no date) (unknown) (unknown) Age/Sex: 77 / F (uni ts unknown) (unknown) (unknown) (no date) (unknown) (unknown) Allergies (units unknown) (unknown) (unknown) (no date) (unknown) (unknown) Allergy/AdvRea c Type Severity Reaction Status Date / Time (units unknown) (unknown) (unknown) (no date) (unknown) (unknown) Altered level of conciousness present: No (units unknown) (unknown) (unknown) (no date) (unknown) (unknown) Amount of anes thesia used (mL): 2 (units unknown) (unknown) (unknown) (no date) (unknown) (unknown) Analgesia: pro cedural sedation (units unknown) (unknown) (unknown) (no date) (unknown) (unknown) Auscultation: clear to auscultation bilaterally (units unknown) (unknown) (unknown) (no date) (unknown) (unknown) Back/Spine/Pelvis (u nits unknown) (unknown) (unknown) (no date) (unknown) (unknown) Bandage was pl aced over the cut to her forehead. (units unknown) (unknown) (unknown) (no date) (unknown) (unknown) Bedside Urine Bilirubin - Negative (units unknown) (unknown) (unknown) (no date) (unknown) (unknown) Bedside Urine Glucose Negative (units unknown) (unknown) (unknown) (no date) (unknown) (unknown) Bedside Urine Ketone - Negative (units unknown) (unknown) (unknown) (no date) (unknown) (unknown) Bedside Urine Leukocytes + 70 (units unknown) (unknown) (unknown) (no date) (unknown) (unknown) Bedside Urine Nitrite + Positive (units unknown) (unknown) (unknown) (no date) (unknown) (unknown) Bedside Urine Occult Blood +/ (units unknown) (unknown) (unknown) (no date) (unknown) (unknown) Bedside Urine Protein - Negative (units unknown) (unknown) (unknown) (no date) (unknown) (unknown) Bedside Urine Urobilinogen - Negative (units unknown) (unknown) (unknown) (no date) (unknown) (unknown) Bedside Urine pH 6.5 (units unknown) (unknown) (unknown) (no date) (unknown) (unknown) Blood Pressure 175/76 H (units unknown) (unknown) (unknown) (no date) (unknown) (unknown) Blood Pressure 187/80 H (units unknown) (unknown) (unknown) (no date) (unknown) (unknown) Blood Pressure 200/92 H 183/84 H (units unknown) (unknown) (unknown) (no date) (unknown) (unknown) Blood Pressure 215/98 H (units unknown) (unknown) (unknown) (no date) (unknown) (unknown) Blood Pressure 218/91 H 204/91 H (units unknown) (unknown) (unknown) (no date) (unknown) (unknown) Blood Pressure 222/97 H (units unknown) (unknown) (unknown) (no date) (unknown) (unknown) Blood Pressure 226/97 H 223/100 H (units unknown) (unknown) (unknown) (no date) (unknown) (unknown) Blood Pressure 229/103 H 220/98 H (units unknown) (unknown) (unknown) (no date) (unknown) (unknown) Blood Pressure 236/105 H 08/15/22 14:40 (units unknown) (unknown) (unknown) (no date) (unknown) (unknown) Blood Pressure 236/105 H (units unknown) (unknown) (unknown) (no date) (unknown) (unknown) Blood Pressure 237/106 H (units unknown) (unknown) (unknown) (no date) (unknown) (unknown) Bones:? Anteri or inferior left shoulder dislocation.? Mild AC degenerative (units unknown) (unknown) (unknown) (no date) (unknown) (unknown) Bones:? The le ft shoulder has now been relocated. (units unknown) (unknown) (unknown) (no date) (unknown) (unknown) Brain:? No intracranial bleeds or masses.? There is cerebral volume loss for (units unknown) (unknown) (unknown) (no date) (unknown) (unknown) COMPARISON:? [facility], CR, SHOULDER MINIMUM 2VIEW RIGHT, 07/11/2014, (units unknown) (unknown) (unknown) (no date) (unknown) (unknown) COMPARISON:? [facility], CR, XR SHOULDER LT MIN 2V, 08/15/2022, 15:00.? (units unknown) (unknown) (unknown) (no date) (unknown) (unknown) COMPARISON:? [facility], CT, HEAD WITHOUT CONTRAST, 07/11/2014, 11:08. (units unknown) (unknown) (unknown) (no date) (unknown) (unknown) CSF spaces:? B elvie cisterns are patent.? No extra-axial fluid collections.? The (units unknown) (unknown) (unknown) (no date) (unknown) (unknown) CT head/brain wo con Stat (units unknown) (unknown) (unknown) (no date) (unknown) (unknown) CT scan - head: (uni ts unknown) (unknown) (unknown) (no date) (unknown) (unknown) Cardio (units unknown) (unknown) (unknown) (no date) (unknown) (unknown) Cardiovascular (unit s unknown) (unknown) (unknown) (no date) (unknown) (unknown) Cardiovascular : Reports system reviewed and no additional complaints, except as (units unknown) (unknown) (unknown) (no date) (unknown) (unknown) Cervical Spine : No cervical muscular tenderness and No cervical spinal (units unknown) (unknown) (unknown) (no date) (unknown) (unknown) Chest (units unknown) (unknown) (unknown) (no date) (unknown) (unknown) Chest: No crep itus and No tenderness (units unknown) (unknown) (unknown) (no date) (unknown) (unknown) Chief complaint: Fal l (units unknown) (unknown) (unknown) (no date) (unknown) (unknown) Clinical Impression: (units unknown) (unknown) (unknown) (no date) (unknown) (unknown) Complications: none (units unknown) (unknown) (unknown) (no date) (unknown) (unknown) Consent signed: Yes (units unknown) (unknown) (unknown) (no date) (unknown) (unknown) Const (units unknown) (unknown) (unknown) (no date) (unknown) (unknown) Constitutional (unit s unknown) (unknown) (unknown) (no date) (unknown) (unknown) Constitutional : Reports system reviewed and no additional complaints, except as (units unknown) (unknown) (unknown) (no date) (unknown) (unknown) Course (units unknown) (unknown) (unknown) (no date) (unknown) (unknown) : 3 Acct:[id number] (units unknown) (unknown) (unknown) (no date) (unknown) (unknown) Date of Servic e: 08/15/22 (units unknown) (unknown) (unknown) (no date) (unknown) (unknown) Departure (units unknown) (unknown) (unknown) (no date) (unknown) (unknown) Depth: simple, single layer (units unknown) (unknown) (unknown) (no date) (unknown) (unknown) Cari Kuo PA-C [Primary Care Provider] (units unknown) (unknown) (unknown) (no date) (unknown) (unknown) Description: linear (units unknown) (unknown) (unknown) (no date) (unknown) (unknown) Discharge Plan (unit s unknown) (unknown) (unknown) (no date) (unknown) (unknown) Discomfort to the left shoulder. Tingling to the left little finger. (units unknown) (unknown) (unknown) (no date) (unknown) (unknown) Discontinued Medications (units unknown) (unknown) (unknown) (no date) (unknown) (unknown) Distracting In jury Present: No (units unknown) (unknown) (unknown) (no date) (unknown) (unknown) Documented By: AT (u nits unknown) (unknown) (unknown) (no date) (unknown) (unknown) ED Orders (units unknown) (unknown) (unknown) (no date) (unknown) (unknown) ED Sedation Le alissa: Moderate (Concious) (units unknown) (unknown) (unknown) (no date) (unknown) (unknown) ENT (units unknown) (unknown) (unknown) (no date) (unknown) (unknown) ER Physician: Regulo Joseph D.O. (units unknown) (unknown) (unknown) (no date) (unknown) (unknown) Ears, Nose, Mo uth, and Throat: Reports system reviewed and no additional (units unknown) (unknown) (unknown) (no date) (unknown) (unknown) Effort + Inspe ction: normal respiratory effort (units unknown) (unknown) (unknown) (no date) (unknown) (unknown) Emergency Report (un its unknown) (unknown) (unknown) (no date) (unknown) (unknown) Esterase (units unknown) (unknown) (unknown) (no date) (unknown) (unknown) Exam (units unknown) (unknown) (unknown) (no date) (unknown) (unknown) Extrem (units unknown) (unknown) (unknown) (no date) (unknown) (unknown) Extremity x-ray #1: (units unknown) (unknown) (unknown) (no date) (unknown) (unknown) Extremity x-ray #2: (units unknown) (unknown) (unknown) (no date) (unknown) (unknown) FINDINGS:? (units unknown) (unknown) (unknown) (no date) (unknown) (unknown) Focal Neurolog ic deficit present: No (units unknown) (unknown) (unknown) (no date) (unknown) (unknown) GCS (units unknown) (unknown) (unknown) (no date) (unknown) (unknown) Gastrointestinal (un its unknown) (unknown) (unknown) (no date) (unknown) (unknown) Gastrointestin al: Reports system reviewed and no additional complaints, except (units unknown) (unknown) (unknown) (no date) (unknown) (unknown) General (units unknown) (unknown) (unknown) (no date) (unknown) (unknown) General: coope rative, comfortable and No ill appearing (units unknown) (unknown) (unknown) (no date) (unknown) (unknown) General: patie nt alert, patient awake and patient oriented x3 (units unknown) (unknown) (unknown) (no date) (unknown) (unknown) [place] coma s [place] eye opening: Spontaneous (units unknown) (unknown) (unknown) (no date) (unknown) (unknown) [place] coma s [place] motor response: Obey commands (units unknown) (unknown) (unknown) (no date) (unknown) (unknown) [place] coma [place] total score: 15 (units unknown) (unknown) (unknown) (no date) (unknown) (unknown) [place] coma s [place] verbal response: Orientated (units unknown) (unknown) (unknown) (no date) (unknown) (unknown) HENMT (units unknown) (unknown) (unknown) (no date) (unknown) (unknown) HPI - General Adult (units unknown) (unknown) (unknown) (no date) (unknown) (unknown) HPI narrative: (unit s unknown) (unknown) (unknown) (no date) (unknown) (unknown) Head: contusio n and laceration (Forehead) (units unknown) (unknown) (unknown) (no date) (unknown) (unknown) Hematologic/Lymphati c (units unknown) (unknown) (unknown) (no date) (unknown) (unknown) History of Pre sent Illness (units unknown) (unknown) (unknown) (no date) (unknown) (unknown) Hospital, CT, CT HEAD/BRAIN WO CON, 08/15/2022, 15:03. (units unknown) (unknown) (unknown) (no date) (unknown) (unknown) Hx of appendectomy ( units unknown) (unknown) (unknown) (no date) (unknown) (unknown) Hypertension (units unknown) (unknown) (unknown) (no date) (unknown) (unknown) IMPRESSION:? A nterior shoulder dislocation.? Please consider post relocation (units unknown) (unknown) (unknown) (no date) (unknown) (unknown) IMPRESSION:? I nterval relocation of the left shoulder, without a fracture (units unknown) (unknown) (unknown) (no date) (unknown) (unknown) IMPRESSION:? M ild left scalp hematoma seen, without an associated calvarial (units unknown) (unknown) (unknown) (no date) (unknown) (unknown) INDICATIONS:? Reduction (units unknown) (unknown) (unknown) (no date) (unknown) (unknown) INDICATIONS:? fall/hit head (units unknown) (unknown) (unknown) (no date) (unknown) (unknown) INDICATIONS:? fall/pain (units unknown) (unknown) (unknown) (no date) (unknown) (unknown) If it would be helpful for clinical management decision making, please consider (units unknown) (unknown) (unknown) (no date) (unknown) (unknown) Image quality: ? There is artifact associated with the metallic earrings. ? (units unknown) (unknown) (unknown) (no date) (unknown) (unknown) Imaging Data (units unknown) (unknown) (unknown) (no date) (unknown) (unknown) Indication: fracture/dislocation reduction (units unknown) (unknown) (unknown) (no date) (unknown) (unknown) Initial Vital Signs (units unknown) (unknown) (unknown) (no date) (unknown) (unknown) Initial Vital Signs: (units unknown) (unknown) (unknown) (no date) (unknown) (unknown) Injury #1: (units unknown) (unknown) (unknown) (no date) (unknown) (unknown) Instructions: How to Use a Sling, DI for Shoulder Dislocation, DI for (units unknown) (unknown) (unknown) (no date) (unknown) (unknown) Integumentary/Breast s (units unknown) (unknown) (unknown) (no date) (unknown) (unknown) Intoxication p resent: No (units unknown) (unknown) (unknown) (no date) (unknown) (unknown) Intraservice time/total sedation time (min): 15 (units unknown) (unknown) (unknown) (no date) (unknown) (unknown) [address] [address] (units unknown) (unknown) (unknown) (no date) (unknown) (unknown) [place] (units unknown) (unknown) (unknown) (no date) (unknown) (unknown) Joint #1: (units unknown) (unknown) (unknown) (no date) (unknown) (unknown) Joint Reductio n Location: shoulder (units unknown) (unknown) (unknown) (no date) (unknown) (unknown) Ketamine dose (mg): 110 (units unknown) (unknown) (unknown) (no date) (unknown) (unknown) Lab Data (units unknown) (unknown) (unknown) (no date) (unknown) (unknown) Lab results re viewed: Yes I reviewed the patient's lab results. (units unknown) (unknown) (unknown) (no date) (unknown) (unknown) Labs: (units unknown) (unknown) (unknown) (no date) (unknown) (unknown) Laceration 1: (units unknown) (unknown) (unknown) (no date) (unknown) (unknown) Laceration Repair (u nits unknown) (unknown) (unknown) (no date) (unknown) (unknown) Laceration of forehead, Anterior dislocation of left shoulder, Abrasion of skin (units unknown) (unknown) (unknown) (no date) (unknown) (unknown) Last Admin: 16:38 Dose: 125 mls/hr (units unknown) (unknown) (unknown) (no date) (unknown) (unknown) Last Admin: 16:40 Dose: 100 mg (units unknown) (unknown) (unknown) (no date) (unknown) (unknown) Last Admin: 16:53 Dose: 10 mg (units unknown) (unknown) (unknown) (no date) (unknown) (unknown) Local Anesthet ic: lidocaine 1% and with epi (units unknown) (unknown) (unknown) (no date) (unknown) (unknown) Mallampati Air way Classification: Class II (units unknown) (unknown) (unknown) (no date) (unknown) (unknown) Medical Decisi on Making (units unknown) (unknown) (unknown) (no date) (unknown) (unknown) Medical Histor y (units unknown) (unknown) (unknown) (no date) (unknown) (unknown) Midline spinal tenderness present: No (units unknown) (unknown) (unknown) (no date) (unknown) (unknown) Mode of arriva l: Ambulatory (units unknown) (unknown) (unknown) (no date) (unknown) (unknown) Neuro (units unknown) (unknown) (unknown) (no date) (unknown) (unknown) Neurologic (units unknown) (unknown) (unknown) (no date) (unknown) (unknown) Neurologic: Re ports system reviewed and no additional complaints, except as (units unknown) (unknown) (unknown) (no date) (unknown) (unknown) Nexus Criteria for C-spine: 0 (units unknown) (unknown) (unknown) (no date) (unknown) (unknown) Nexus Score fo r C-Spine (units unknown) (unknown) (unknown) (no date) (unknown) (unknown) No acute intra cranial hemorrhage is seen.? (units unknown) (unknown) (unknown) (no date) (unknown) (unknown) No acute intra cranial process is seen. (units unknown) (unknown) (unknown) (no date) (unknown) (unknown) No displaced f ractures are seen.? Age-appropriate bony degenerative changes are (units unknown) (unknown) (unknown) (no date) (unknown) (unknown) Noncontrast 4. 5 mm thick angled axial sections acquired from the foramen magnum (units unknown) (unknown) (unknown) (no date) (unknown) (unknown) Number of sutures: 2 (units unknown) (unknown) (unknown) (no date) (unknown) (unknown) Grady Robison MD [Physician] (units unknown) (unknown) (unknown) (no date) (unknown) (unknown) On Anticoagulants: Y es (units unknown) (unknown) (unknown) (no date) (unknown) (unknown) Ordered: (units unknown) (unknown) (unknown) (no date) (unknown) (unknown) Orders (units unknown) (unknown) (unknown) (no date) (unknown) (unknown) Orthopedic Salena nt Reduction (units unknown) (unknown) (unknown) (no date) (unknown) (unknown) Orthopedic Splinting/Casting (units unknown) (unknown) (unknown) (no date) (unknown) (unknown) Other: (units unknown) (unknown) (unknown) (no date) (unknown) (unknown) Oxygen Deliver y Method Nasal Cannula Nasal Cannula (units unknown) (unknown) (unknown) (no date) (unknown) (unknown) Oxygen Deliver y Method Nasal Cannula (units unknown) (unknown) (unknown) (no date) (unknown) (unknown) Oxygen Deliver y Method Room Air 08/15/22 14:40 (units unknown) (unknown) (unknown) (no date) (unknown) (unknown) Oxygen Deliver y Method Room Air (units unknown) (unknown) (unknown) (no date) (unknown) (unknown) Oxygen Delivery Meth od (units unknown) (unknown) (unknown) (no date) (unknown) (unknown) Oxygen Flow Rate 2 2 (units unknown) (unknown) (unknown) (no date) (unknown) (unknown) Oxygen Flow Rate 2 ( units unknown) (unknown) (unknown) (no date) (unknown) (unknown) Oxygen Flow Rate (un its unknown) (unknown) (unknown) (no date) (unknown) (unknown) PROCEDURE:? XR SHOULDER LT MIN 2V (units unknown) (unknown) (unknown) (no date) (unknown) (unknown) Patient Dispos ition: Home (units unknown) (unknown) (unknown) (no date) (unknown) (unknown) Patient History (uni ts unknown) (unknown) (unknown) (no date) (unknown) (unknown) Patient Tolera manoj Procedure: Well (units unknown) (unknown) (unknown) (no date) (unknown) (unknown) Patient is a 77-year-old female who is here for evaluation of injuries that she (units unknown) (unknown) (unknown) (no date) (unknown) (unknown) Patient: Megan Washington MR#: [id number] (units unknown) (unknown) (unknown) (no date) (unknown) (unknown) Placed by: Provider (units unknown) (unknown) (unknown) (no date) (unknown) (unknown) Point of Care Testin g (units unknown) (unknown) (unknown) (no date) (unknown) (unknown) Point of care testin g: (units unknown) (unknown) (unknown) (no date) (unknown) (unknown) Post Reduction X-Ray Obtained: Yes (units unknown) (unknown) (unknown) (no date) (unknown) (unknown) Post Reduction X-Ray Results: reduced (units unknown) (unknown) (unknown) (no date) (unknown) (unknown) Post splinting neuro exam: no change (units unknown) (unknown) (unknown) (no date) (unknown) (unknown) Post splinting vascular exam: no change (units unknown) (unknown) (unknown) (no date) (unknown) (unknown) Post-reduction neuro exam: no change (units unknown) (unknown) (unknown) (no date) (unknown) (unknown) Post-reduction vascular: no change (units unknown) (unknown) (unknown) (no date) (unknown) (unknown) Pre-repair: wo und explored (units unknown) (unknown) (unknown) (no date) (unknown) (unknown) Test Results Not applicable (units unknown) (unknown) (unknown) (no date) (unknown) (unknown) Preparation: c ardiac monitor applied, pulse oximeter, capnometry used, (units unknown) (unknown) (unknown) (no date) (unknown) (unknown) Procedural Sedation (units unknown) (unknown) (unknown) (no date) (unknown) (unknown) Procedures (units unknown) (unknown) (unknown) (no date) (unknown) (unknown) Propofol (Prop ofol 200 Mg/20 Ml Vial) 10 mg IV NOW ONE (units unknown) (unknown) (unknown) (no date) (unknown) (unknown) Propofol (Prop ofol 200 Mg/20 Ml Vial) 100 mg IV NOW ONE (units unknown) (unknown) (unknown) (no date) (unknown) (unknown) Pulse Oximetry 93 (u nits unknown) (unknown) (unknown) (no date) (unknown) (unknown) Pulse Oximetry 94 92 (units unknown) (unknown) (unknown) (no date) (unknown) (unknown) Pulse Oximetry 95 92 (units unknown) (unknown) (unknown) (no date) (unknown) (unknown) Pulse Oximetry 95 96 (units unknown) (unknown) (unknown) (no date) (unknown) (unknown) Pulse Oximetry 95 (u nits unknown) (unknown) (unknown) (no date) (unknown) (unknown) Pulse Oximetry 96 95 (units unknown) (unknown) (unknown) (no date) (unknown) (unknown) Pulse Oximetry 96 (u nits unknown) (unknown) (unknown) (no date) (unknown) (unknown) Pulse Oximetry 97 08/15/22 14:40 (units unknown) (unknown) (unknown) (no date) (unknown) (unknown) Pulse Oximetry 97 94 95 (units unknown) (unknown) (unknown) (no date) (unknown) (unknown) Pulse Oximetry 97 95 (units unknown) (unknown) (unknown) (no date) (unknown) (unknown) Pulse Rate 101 H (un its unknown) (unknown) (unknown) (no date) (unknown) (unknown) Pulse Rate 103 H 109 H (units unknown) (unknown) (unknown) (no date) (unknown) (unknown) Pulse Rate 85 81 (un its unknown) (unknown) (unknown) (no date) (unknown) (unknown) Pulse Rate 86 (units unknown) (unknown) (unknown) (no date) (unknown) (unknown) Pulse Rate 89 08/15/22 14:40 (units unknown) (unknown) (unknown) (no date) (unknown) (unknown) Pulse Rate 89 93 H 8 9 (units unknown) (unknown) (unknown) (no date) (unknown) (unknown) Pulse Rate 92 H 95 H (units unknown) (unknown) (unknown) (no date) (unknown) (unknown) Pulse Rate 92 H (uni ts unknown) (unknown) (unknown) (no date) (unknown) (unknown) Pulse Rate 93 H 90 ( units unknown) (unknown) (unknown) (no date) (unknown) (unknown) Pulse Rate 94 H 97 H (units unknown) (unknown) (unknown) (no date) (unknown) (unknown) Pulse Rate 94 H (uni ts unknown) (unknown) (unknown) (no date) (unknown) (unknown) Pulse Rate 95 H 94 H (units unknown) (unknown) (unknown) (no date) (unknown) (unknown) ROCEDURE:? CT HEAD/BRAIN WO CON (units unknown) (unknown) (unknown) (no date) (unknown) (unknown) Radiologist's Impression: (units unknown) (unknown) (unknown) (no date) (unknown) (unknown) Rate: regular rate ( units unknown) (unknown) (unknown) (no date) (unknown) (unknown) Referrals: (units unknown) (unknown) (unknown) (no date) (unknown) (unknown) Related Data (units unknown) (unknown) (unknown) (no date) (unknown) (unknown) Resp (units unknown) (unknown) (unknown) (no date) (unknown) (unknown) Respiratory Ra te 16 08/15/22 14:40 (units unknown) (unknown) (unknown) (no date) (unknown) (unknown) Respiratory Rate 16 (units unknown) (unknown) (unknown) (no date) (unknown) (unknown) Respiratory Rate 18 24 (units unknown) (unknown) (unknown) (no date) (unknown) (unknown) Respiratory Ra te 29 H 26 H (units unknown) (unknown) (unknown) (no date) (unknown) (unknown) Respiratory Rate 30 H (units unknown) (unknown) (unknown) (no date) (unknown) (unknown) Respiratory Ra te 31 H 37 H (units unknown) (unknown) (unknown) (no date) (unknown) (unknown) Respiratory Rate 38 H (units unknown) (unknown) (unknown) (no date) (unknown) (unknown) Respiratory Rate 59 H (units unknown) (unknown) (unknown) (no date) (unknown) (unknown) Respiratory Rate (un its unknown) (unknown) (unknown) (no date) (unknown) (unknown) Respiratory (units unknown) (unknown) (unknown) (no date) (unknown) (unknown) Respiratory: R eports system reviewed and no additional complaints, except as (units unknown) (unknown) (unknown) (no date) (unknown) (unknown) Review of Systems (u nits unknown) (unknown) (unknown) (no date) (unknown) (unknown) Rhythm: regular rhyt hm (units unknown) (unknown) (unknown) (no date) (unknown) (unknown) Scores (units unknown) (unknown) (unknown) (no date) (unknown) (unknown) Shoulder Techn ique Used (if applicable): Milch (units unknown) (unknown) (unknown) (no date) (unknown) (unknown) Side (If appli cable): left (units unknown) (unknown) (unknown) (no date) (unknown) (unknown) Side: left (units unknown) (unknown) (unknown) (no date) (unknown) (unknown) Signed By: (units unknown) (unknown) (unknown) (no date) (unknown) (unknown) Sinuses:? Visu alized sinuses and mastoids are clear.? (units unknown) (unknown) (unknown) (no date) (unknown) (unknown) Site: face (Forehead ) (units unknown) (unknown) (unknown) (no date) (unknown) (unknown) Size (cm): 1 (units unknown) (unknown) (unknown) (no date) (unknown) (unknown) Skin layer malia sed with: nylon (units unknown) (unknown) (unknown) (no date) (unknown) (unknown) Skin (units unknown) (unknown) (unknown) (no date) (unknown) (unknown) Skin/Breast: R eports system reviewed and no additional complaints, except as (units unknown) (unknown) (unknown) (no date) (unknown) (unknown) Skull and face :? There is a mild scalp hematoma seen anteriorly and on the left, (units unknown) (unknown) (unknown) (no date) (unknown) (unknown) Smoking Status : Former smoker (units unknown) (unknown) (unknown) (no date) (unknown) (unknown) Social History (units unknown) (unknown) (unknown) (no date) (unknown) (unknown) Sodium Chlorid e (Normal Saline 0.9%) 1,000 mls @ 125 mls/hr IV CONT JACKI (units unknown) (unknown) (unknown) (no date) (unknown) (unknown) Soft tissues:? No suspicious soft tissue calcifications.? The visualized lung (units unknown) (unknown) (unknown) (no date) (unknown) (unknown) Soft tissues:? No suspicious soft tissue calcifications.? (units unknown) (unknown) (unknown) (no date) (unknown) (unknown) Source: patient (uni ts unknown) (unknown) (unknown) (no date) (unknown) (unknown) Splint Applied: No ( units unknown) (unknown) (unknown) (no date) (unknown) (unknown) Stand Alone Fo bre: Patient Portal/API (units unknown) (unknown) (unknown) (no date) (unknown) (unknown) Stated complai nt: fall, head wound, left arm and shoulder pain (units unknown) (unknown) (unknown) (no date) (unknown) (unknown) Stop: 08/15/22 16:13 (units unknown) (unknown) (unknown) (no date) (unknown) (unknown) Stop: 08/15/22 17:09 (units unknown) (unknown) (unknown) (no date) (unknown) (unknown) Substance Use Type: does not use (units unknown) (unknown) (unknown) (no date) (unknown) (unknown) Surgical Histo ry (units unknown) (unknown) (unknown) (no date) (unknown) (unknown) TECHNIQUE:? 2 views of the shoulder were acquired.? (units unknown) (unknown) (unknown) (no date) (unknown) (unknown) TECHNIQUE:? 3 views of the shoulder were acquired.? (units unknown) (unknown) (unknown) (no date) (unknown) (unknown) TECHNIQUE:? (units unknown) (unknown) (unknown) (no date) (unknown) (unknown) Technique: sim ple, interrupted (units unknown) (unknown) (unknown) (no date) (unknown) (unknown) Temperature 98 .6 F 08/15/22 14:40 (units unknown) (unknown) (unknown) (no date) (unknown) (unknown) Temperature 98.6 F ( units unknown) (unknown) (unknown) (no date) (unknown) (unknown) Temperature (units unknown) (unknown) (unknown) (no date) (unknown) (unknown) Tetanus Toxoid Allergy Unknown Uncoded 07/12/17 12:14 (units unknown) (unknown) (unknown) (no date) (unknown) (unknown) The stitches a re not absorbable and do need to be removed in the next 7-10 days. (units unknown) (unknown) (unknown) (no date) (unknown) (unknown) Time Out Perfo rmed: Yes (units unknown) (unknown) (unknown) (no date) (unknown) (unknown) Time Seen by [place]: 08/15/22 15:06 (units unknown) (unknown) (unknown) (no date) (unknown) (unknown) Upper Extremit y Immobilizer: sling/shoulder immobilizer (units unknown) (unknown) (unknown) (no date) (unknown) (unknown) Upper Extremit y Injury Location: shoulder (units unknown) (unknown) (unknown) (no date) (unknown) (unknown) Urine Culture Stat ( units unknown) (unknown) (unknown) (no date) (unknown) (unknown) Urine Dip (units unknown) (unknown) (unknown) (no date) (unknown) (unknown) Urine Specific [place] 1.015 (units unknown) (unknown) (unknown) (no date) (unknown) (unknown) Vital Signs - 8 hr ( units unknown) (unknown) (unknown) (no date) (unknown) (unknown) Vital Signs (units unknown) (unknown) (unknown) (no date) (unknown) (unknown) Vital signs: (units unknown) (unknown) (unknown) (no date) (unknown) (unknown) XR shoulder LT min 2V Stat (units unknown) (unknown) (unknown) (no date) (unknown) (unknown) You can go to your primary doctor or the walk-in clinic or back here to the (units unknown) (unknown) (unknown) (no date) (unknown) (unknown) You can take Tylenol/ibuprofen for any discomfort. Recommend that you contact (units unknown) (unknown) (unknown) (no date) (unknown) (unknown) a (units unknown) (unknown) (unknown) (no date) (unknown) (unknown) age, with (units unknown) (unknown) (unknown) (no date) (unknown) (unknown) alcohol intake: karoline yang (units unknown) (unknown) (unknown) (no date) (unknown) (unknown) and fell forwa rd and hit her head and also injured her left shoulder. There was (units unknown) (unknown) (unknown) (no date) (unknown) (unknown) antibiotic oin tment. You can also shower like normal. The sling is for your (units unknown) (unknown) (unknown) (no date) (unknown) (unknown) artery atherosclerosis.? (units unknown) (unknown) (unknown) (no date) (unknown) (unknown) as documented (units unknown) (unknown) (unknown) (no date) (unknown) (unknown) as on (units unknown) (unknown) (unknown) (no date) (unknown) (unknown) can be (units unknown) (unknown) (unknown) (no date) (unknown) (unknown) carotid (units unknown) (unknown) (unknown) (no date) (unknown) (unknown) changes. (units unknown) (unknown) (unknown) (no date) (unknown) (unknown) comfort. Avoid putting your arm/shoulder in the position that we discussed. (units unknown) (unknown) (unknown) (no date) (unknown) (unknown) complaints, ex cept as documented (units unknown) (unknown) (unknown) (no date) (unknown) (unknown) contraindication).? (units unknown) (unknown) (unknown) (no date) (unknown) (unknown) [facility] for further evaluation (assuming that there is (units unknown) (unknown) (unknown) (no date) (unknown) (unknown) demonstrates a n unremarkable appearance. (units unknown) (unknown) (unknown) (no date) (unknown) (unknown) documented (units unknown) (unknown) (unknown) (no date) (unknown) (unknown) emergency depa rtment for that. You can cover with a bandage and use topical (units unknown) (unknown) (unknown) (no date) (unknown) (unknown) evaluate any underlying [place] or [place] fractures. (units unknown) (unknown) (unknown) (no date) (unknown) (unknown) facial bones a ppear intact, without suspicious lesions.? (units unknown) (unknown) (unknown) (no date) (unknown) (unknown) following (units unknown) (unknown) (unknown) (no date) (unknown) (unknown) fracture. (units unknown) (unknown) (unknown) (no date) (unknown) (unknown) household memb ers: none (units unknown) (unknown) (unknown) (no date) (unknown) (unknown) identified. (units unknown) (unknown) (unknown) (no date) (unknown) (unknown) imaging t to (units unknown) (unknown) (unknown) (no date) (unknown) (unknown) matter chronic small vessel ischemic changes.? Areas of remote lacunar infarcts (units unknown) (unknown) (unknown) (no date) (unknown) (unknown) no loss of consciousness. She is no neck pain. She did sustain some bruising (units unknown) (unknown) (unknown) (no date) (unknown) (unknown) no (units unknown) (unknown) (unknown) (no date) (unknown) (unknown) patient (units unknown) (unknown) (unknown) (no date) (unknown) (unknown) resultant vent ricular and sulcal prominence.? There are periventricular and deep (units unknown) (unknown) (unknown) (no date) (unknown) (unknown) seen involving the basal ganglia on both sides.? There is intracranial internal (units unknown) (unknown) (unknown) (no date) (unknown) (unknown) seen.? (units unknown) (unknown) (unknown) (no date) (unknown) (unknown) series 2, imag e 25. No associated calvarial fracture is seen.? Calvarium and (units unknown) (unknown) (unknown) (no date) (unknown) (unknown) size.? (units unknown) (unknown) (unknown) (no date) (unknown) (unknown) supplemental O 2 applied, suction/airway equipment at bedside and IV secured (units unknown) (unknown) (unknown) (no date) (unknown) (unknown) sustained when she was throwing some garbage into a dumpster. She states she (units unknown) (unknown) (unknown) (no date) (unknown) (unknown) tenderness (units unknown) (unknown) (unknown) (no date) (unknown) (unknown) the orthopedic doctors with a number provided below for follow-up. (units unknown) (unknown) (unknown) (no date) (unknown) (unknown) to her left kn ee and her right elbow. She was placed in a sling in triage. (units unknown) (unknown) (unknown) (no date) (unknown) (unknown) to the (units unknown) (unknown) (unknown) (no date) (unknown) (unknown) turned around. She thinks she got her feet caught on something on the ground (units unknown) (unknown) (unknown) (no date) (unknown) (unknown) ventricles are symmetric in size and shape.? (units unknown) (unknown) (unknown) (no date) (unknown) (unknown) vertex, with c oronal and sagittal reformats.? For radiation dose reduction, the (units unknown) (unknown) (unknown) (no date) (unknown) (unknown) visualized (units unknown) (unknown) (unknown) (no date) (unknown) (unknown) was used:? aut omated exposure control, adjustment of mA and/or kV according to (units unknown) (unknown) (unknown) (no date) (unknown) (unknown) white (units unknown) (unknown) Result panel 7 (unknown) (no date) (unknown) (unknown) (no value) (units unknown) (unknown) (unknown) (no date) (unknown) (unknown) <Electronicall y signed by Regulo Joseph D.O.> (units unknown) (unknown) (unknown) (no date) (unknown) (unknown) [id number] (units unknown) (unknown) (unknown) (no date) (unknown) (unknown) 08/15/22 14:57 (unit s unknown) (unknown) (unknown) (no date) (unknown) (unknown) 08/15/22 16:46 (unit s unknown) (unknown) (unknown) (no date) (unknown) (unknown) 08/15/22 1817 (units unknown) (unknown) (unknown) (no date) (unknown) (unknown) 08/15/22 18:08 (unit s unknown) (unknown) (unknown) (no date) (unknown) (unknown) 08/15/22 (units unknown) (unknown) (unknown) (no date) (unknown) (unknown) 1 cm laceratio n to forehead. Contusion to anterior left knee. (units unknown) (unknown) (unknown) (no date) (unknown) (unknown) 11:00. (units unknown) (unknown) (unknown) (no date) (unknown) (unknown) 14:40 08/15/22 (unit s unknown) (unknown) (unknown) (no date) (unknown) (unknown) 14:52 08/15/22 (unit s unknown) (unknown) (unknown) (no date) (unknown) (unknown) 14:53 08/15/22 (unit s unknown) (unknown) (unknown) (no date) (unknown) (unknown) 14:53 (units unknown) (unknown) (unknown) (no date) (unknown) (unknown) 15:00 08/15/22 (unit s unknown) (unknown) (unknown) (no date) (unknown) (unknown) 15:25 08/15/22 (unit s unknown) (unknown) (unknown) (no date) (unknown) (unknown) 15:25 (units unknown) (unknown) (unknown) (no date) (unknown) (unknown) 15:30 08/15/22 (unit s unknown) (unknown) (unknown) (no date) (unknown) (unknown) 15:30 (units unknown) (unknown) (unknown) (no date) (unknown) (unknown) 15:45 08/15/22 (unit s unknown) (unknown) (unknown) (no date) (unknown) (unknown) 16:30 (units unknown) (unknown) (unknown) (no date) (unknown) (unknown) 16:31 08/15/22 (unit s unknown) (unknown) (unknown) (no date) (unknown) (unknown) 16:45 08/15/22 (unit s unknown) (unknown) (unknown) (no date) (unknown) (unknown) 16:45 (units unknown) (unknown) (unknown) (no date) (unknown) (unknown) 16:50 08/15/22 (unit s unknown) (unknown) (unknown) (no date) (unknown) (unknown) 16:50 (units unknown) (unknown) (unknown) (no date) (unknown) (unknown) 16:55 08/15/22 (unit s unknown) (unknown) (unknown) (no date) (unknown) (unknown) 17:00 08/15/22 (unit s unknown) (unknown) (unknown) (no date) (unknown) (unknown) 17:00 (units unknown) (unknown) (unknown) (no date) (unknown) (unknown) 17:05 08/15/22 (unit s unknown) (unknown) (unknown) (no date) (unknown) (unknown) 17:05 (units unknown) (unknown) (unknown) (no date) (unknown) (unknown) 17:10 08/15/22 (unit s unknown) (unknown) (unknown) (no date) (unknown) (unknown) 17:10 (units unknown) (unknown) (unknown) (no date) (unknown) (unknown) 17:17 08/15/22 (unit s unknown) (unknown) (unknown) (no date) (unknown) (unknown) 17:20 08/15/22 (unit s unknown) (unknown) (unknown) (no date) (unknown) (unknown) 17:20 (units unknown) (unknown) (unknown) (no date) (unknown) (unknown) 17:25 08/15/22 (unit s unknown) (unknown) (unknown) (no date) (unknown) (unknown) 17:32 08/15/22 (unit s unknown) (unknown) (unknown) (no date) (unknown) (unknown) 17:32 (units unknown) (unknown) (unknown) (no date) (unknown) (unknown) ? (units unknown) (unknown) (unknown) (no date) (unknown) (unknown) ASA Class: II (units unknown) (unknown) (unknown) (no date) (unknown) (unknown) Activity Restrictions/Additiona l Instructions: (units unknown) (unknown) (unknown) (no date) (unknown) (unknown) Age/Sex: 77 / F (uni ts unknown) (unknown) (unknown) (no date) (unknown) (unknown) Allergies (units unknown) (unknown) (unknown) (no date) (unknown) (unknown) Allergy/AdvRea c Type Severity Reaction Status Date / Time (units unknown) (unknown) (unknown) (no date) (unknown) (unknown) Altered level of conciousness present: No (units unknown) (unknown) (unknown) (no date) (unknown) (unknown) Amount of anes thesia used (mL): 2 (units unknown) (unknown) (unknown) (no date) (unknown) (unknown) Analgesia: pro cedural sedation (units unknown) (unknown) (unknown) (no date) (unknown) (unknown) Auscultation: clear to auscultation bilaterally (units unknown) (unknown) (unknown) (no date) (unknown) (unknown) Back/Spine/Pelvis (u nits unknown) (unknown) (unknown) (no date) (unknown) (unknown) Bandage was pl aced over the cut to her forehead. (units unknown) (unknown) (unknown) (no date) (unknown) (unknown) Bedside Urine Bilirubin - Negative (units unknown) (unknown) (unknown) (no date) (unknown) (unknown) Bedside Urine Glucose Negative (units unknown) (unknown) (unknown) (no date) (unknown) (unknown) Bedside Urine Ketone - Negative (units unknown) (unknown) (unknown) (no date) (unknown) (unknown) Bedside Urine Leukocytes + 70 (units unknown) (unknown) (unknown) (no date) (unknown) (unknown) Bedside Urine Nitrite + Positive (units unknown) (unknown) (unknown) (no date) (unknown) (unknown) Bedside Urine Occult Blood +/ (units unknown) (unknown) (unknown) (no date) (unknown) (unknown) Bedside Urine Protein - Negative (units unknown) (unknown) (unknown) (no date) (unknown) (unknown) Bedside Urine Urobilinogen - Negative (units unknown) (unknown) (unknown) (no date) (unknown) (unknown) Bedside Urine pH 6.5 (units unknown) (unknown) (unknown) (no date) (unknown) (unknown) Blood Pressure 175/76 H (units unknown) (unknown) (unknown) (no date) (unknown) (unknown) Blood Pressure 187/80 H (units unknown) (unknown) (unknown) (no date) (unknown) (unknown) Blood Pressure 200/92 H 183/84 H (units unknown) (unknown) (unknown) (no date) (unknown) (unknown) Blood Pressure 215/98 H (units unknown) (unknown) (unknown) (no date) (unknown) (unknown) Blood Pressure 218/91 H 204/91 H (units unknown) (unknown) (unknown) (no date) (unknown) (unknown) Blood Pressure 222/97 H (units unknown) (unknown) (unknown) (no date) (unknown) (unknown) Blood Pressure 226/97 H 223/100 H (units unknown) (unknown) (unknown) (no date) (unknown) (unknown) Blood Pressure 229/103 H 220/98 H (units unknown) (unknown) (unknown) (no date) (unknown) (unknown) Blood Pressure 236/105 H 08/15/22 14:40 (units unknown) (unknown) (unknown) (no date) (unknown) (unknown) Blood Pressure 236/105 H (units unknown) (unknown) (unknown) (no date) (unknown) (unknown) Blood Pressure 237/106 H (units unknown) (unknown) (unknown) (no date) (unknown) (unknown) Bones:? Anteri or inferior left shoulder dislocation.? Mild AC degenerative (units unknown) (unknown) (unknown) (no date) (unknown) (unknown) Bones:? The [facility] shoulder has now been relocated. (units unknown) (unknown) (unknown) (no date) (unknown) (unknown) Brain:? No intracranial bleeds or masses.? There is cerebral volume loss for (units unknown) (unknown) (unknown) (no date) (unknown) (unknown) COMPARISON:? [facility], CR, SHOULDER MINIMUM 2VIEW RIGHT, 07/11/2014, (units unknown) (unknown) (unknown) (no date) (unknown) (unknown) COMPARISON:? [facility], CR, XR SHOULDER LT MIN 2V, 08/15/2022, 15:00.? (units unknown) (unknown) (unknown) (no date) (unknown) (unknown) COMPARISON:? [facility], CT, HEAD WITHOUT CONTRAST, 07/11/2014, 11:08. (units unknown) (unknown) (unknown) (no date) (unknown) (unknown) CSF spaces:? B elvie cisterns are patent.? No extra-axial fluid collections.? The (units unknown) (unknown) (unknown) (no date) (unknown) (unknown) CT head/brain wo con Stat (units unknown) (unknown) (unknown) (no date) (unknown) (unknown) CT scan - head: (uni ts unknown) (unknown) (unknown) (no date) (unknown) (unknown) Cardio (units unknown) (unknown) (unknown) (no date) (unknown) (unknown) Cardiovascular (unit s unknown) (unknown) (unknown) (no date) (unknown) (unknown) Cardiovascular : Reports system reviewed and no additional complaints, except as (units unknown) (unknown) (unknown) (no date) (unknown) (unknown) Cervical Spine : No cervical muscular tenderness and No cervical spinal (units unknown) (unknown) (unknown) (no date) (unknown) (unknown) Chest (units unknown) (unknown) (unknown) (no date) (unknown) (unknown) Chest: No crep itus and No tenderness (units unknown) (unknown) (unknown) (no date) (unknown) (unknown) Chief complaint: Fal l (units unknown) (unknown) (unknown) (no date) (unknown) (unknown) Clinical Impression: (units unknown) (unknown) (unknown) (no date) (unknown) (unknown) Complications: none (units unknown) (unknown) (unknown) (no date) (unknown) (unknown) Consent signed: Yes (units unknown) (unknown) (unknown) (no date) (unknown) (unknown) Const (units unknown) (unknown) (unknown) (no date) (unknown) (unknown) Constitutional (unit s unknown) (unknown) (unknown) (no date) (unknown) (unknown) Constitutional : Reports system reviewed and no additional complaints, except as (units unknown) (unknown) (unknown) (no date) (unknown) (unknown) Course (units unknown) (unknown) (unknown) (no date) (unknown) (unknown) : 3 Acct:[id number] (units unknown) (unknown) (unknown) (no date) (unknown) (unknown) Date of Servic e: 08/15/22 (units unknown) (unknown) (unknown) (no date) (unknown) (unknown) Departure (units unknown) (unknown) (unknown) (no date) (unknown) (unknown) Depth: simple, single layer (units unknown) (unknown) (unknown) (no date) (unknown) (unknown) Cari Kuo PA-C [Primary Care Provider] (units unknown) (unknown) (unknown) (no date) (unknown) (unknown) Description: linear (units unknown) (unknown) (unknown) (no date) (unknown) (unknown) Discharge Plan (unit s unknown) (unknown) (unknown) (no date) (unknown) (unknown) Discomfort to the left shoulder. Tingling to the left little finger. (units unknown) (unknown) (unknown) (no date) (unknown) (unknown) Discontinued Medications (units unknown) (unknown) (unknown) (no date) (unknown) (unknown) Distracting In jury Present: No (units unknown) (unknown) (unknown) (no date) (unknown) (unknown) Documented By: AT (u nits unknown) (unknown) (unknown) (no date) (unknown) (unknown) ED Orders (units unknown) (unknown) (unknown) (no date) (unknown) (unknown) ED Sedation Le alissa: Moderate (Concious) (units unknown) (unknown) (unknown) (no date) (unknown) (unknown) ENT (units unknown) (unknown) (unknown) (no date) (unknown) (unknown) ER Physician: Regulo Joseph D.O. (units unknown) (unknown) (unknown) (no date) (unknown) (unknown) Ears, Nose, Mo uth, and Throat: Reports system reviewed and no additional (units unknown) (unknown) (unknown) (no date) (unknown) (unknown) Effort + Inspe ction: normal respiratory effort (units unknown) (unknown) (unknown) (no date) (unknown) (unknown) Emergency Report (un its unknown) (unknown) (unknown) (no date) (unknown) (unknown) Esterase (units unknown) (unknown) (unknown) (no date) (unknown) (unknown) Exam (units unknown) (unknown) (unknown) (no date) (unknown) (unknown) Extrem (units unknown) (unknown) (unknown) (no date) (unknown) (unknown) Extremity x-ray #1: (units unknown) (unknown) (unknown) (no date) (unknown) (unknown) Extremity x-ray #2: (units unknown) (unknown) (unknown) (no date) (unknown) (unknown) FINDINGS:? (units unknown) (unknown) (unknown) (no date) (unknown) (unknown) Focal Neurolog ic deficit present: No (units unknown) (unknown) (unknown) (no date) (unknown) (unknown) GCS (units unknown) (unknown) (unknown) (no date) (unknown) (unknown) Gastrointestinal (un its unknown) (unknown) (unknown) (no date) (unknown) (unknown) Gastrointestin al: Reports system reviewed and no additional complaints, except (units unknown) (unknown) (unknown) (no date) (unknown) (unknown) General (units unknown) (unknown) (unknown) (no date) (unknown) (unknown) General: coope rative, comfortable and No ill appearing (units unknown) (unknown) (unknown) (no date) (unknown) (unknown) General: patie nt alert, patient awake and patient oriented x3 (units unknown) (unknown) (unknown) (no date) (unknown) (unknown) [place] coma s [place] eye opening: Spontaneous (units unknown) (unknown) (unknown) (no date) (unknown) (unknown) [place] coma s [place] motor response: Obey commands (units unknown) (unknown) (unknown) (no date) (unknown) (unknown) [place] coma s [place] total score: 15 (units unknown) (unknown) (unknown) (no date) (unknown) (unknown) [place] coma s [place] verbal response: Orientated (units unknown) (unknown) (unknown) (no date) (unknown) (unknown) HENMT (units unknown) (unknown) (unknown) (no date) (unknown) (unknown) HPI - General Adult (units unknown) (unknown) (unknown) (no date) (unknown) (unknown) HPI narrative: (unit s unknown) (unknown) (unknown) (no date) (unknown) (unknown) Head: contusio n and laceration (Forehead) (units unknown) (unknown) (unknown) (no date) (unknown) (unknown) Hematologic/Lymphati c (units unknown) (unknown) (unknown) (no date) (unknown) (unknown) History of Pre sent Illness (units unknown) (unknown) (unknown) (no date) (unknown) (unknown) Hospital, CT, CT HEAD/BRAIN WO CON, 08/15/2022, 15:03. (units unknown) (unknown) (unknown) (no date) (unknown) (unknown) Hx of appendectomy ( units unknown) (unknown) (unknown) (no date) (unknown) (unknown) Hypertension (units unknown) (unknown) (unknown) (no date) (unknown) (unknown) IMPRESSION:? A nterior shoulder dislocation.? Please consider post relocation (units unknown) (unknown) (unknown) (no date) (unknown) (unknown) IMPRESSION:? I nterval relocation of the left shoulder, without a fracture (units unknown) (unknown) (unknown) (no date) (unknown) (unknown) IMPRESSION:? M ild left scalp hematoma seen, without an associated calvarial (units unknown) (unknown) (unknown) (no date) (unknown) (unknown) INDICATIONS:? Reduction (units unknown) (unknown) (unknown) (no date) (unknown) (unknown) INDICATIONS:? fall/hit head (units unknown) (unknown) (unknown) (no date) (unknown) (unknown) INDICATIONS:? fall/pain (units unknown) (unknown) (unknown) (no date) (unknown) (unknown) If it would be helpful for clinical management decision making, please consider (units unknown) (unknown) (unknown) (no date) (unknown) (unknown) Image quality: ? There is artifact associated with the metallic earrings. ? (units unknown) (unknown) (unknown) (no date) (unknown) (unknown) Imaging Data (units unknown) (unknown) (unknown) (no date) (unknown) (unknown) Indication: fracture/dislocation reduction (units unknown) (unknown) (unknown) (no date) (unknown) (unknown) Initial Vital Signs (units unknown) (unknown) (unknown) (no date) (unknown) (unknown) Initial Vital Signs: (units unknown) (unknown) (unknown) (no date) (unknown) (unknown) Injury #1: (units unknown) (unknown) (unknown) (no date) (unknown) (unknown) Instructions: How to Use a Sling, DI for Shoulder Dislocation, DI for (units unknown) (unknown) (unknown) (no date) (unknown) (unknown) Integumentary/Breast s (units unknown) (unknown) (unknown) (no date) (unknown) (unknown) Intoxication p resent: No (units unknown) (unknown) (unknown) (no date) (unknown) (unknown) Intraservice time/total sedation time (min): 15 (units unknown) (unknown) (unknown) (no date) (unknown) (unknown) [address] [id number] (units unknown) (unknown) (unknown) (no date) (unknown) (unknown) [place] (units unknown) (unknown) (unknown) (no date) (unknown) (unknown) Joint #1: (units unknown) (unknown) (unknown) (no date) (unknown) (unknown) Joint Reductio n Location: shoulder (units unknown) (unknown) (unknown) (no date) (unknown) (unknown) Ketamine dose (mg): 110 (units unknown) (unknown) (unknown) (no date) (unknown) (unknown) Lab Data (units unknown) (unknown) (unknown) (no date) (unknown) (unknown) Lab results re viewed: Yes I reviewed the patient's lab results. (units unknown) (unknown) (unknown) (no date) (unknown) (unknown) Labs: (units unknown) (unknown) (unknown) (no date) (unknown) (unknown) Laceration 1: (units unknown) (unknown) (unknown) (no date) (unknown) (unknown) Laceration Repair (u nits unknown) (unknown) (unknown) (no date) (unknown) (unknown) Laceration of forehead, Anterior dislocation of left shoulder, Abrasion of skin (units unknown) (unknown) (unknown) (no date) (unknown) (unknown) Last Admin: 16:38 Dose: 125 mls/hr (units unknown) (unknown) (unknown) (no date) (unknown) (unknown) Last Admin: 16:40 Dose: 100 mg (units unknown) (unknown) (unknown) (no date) (unknown) (unknown) Last Admin: 16:53 Dose: 10 mg (units unknown) (unknown) (unknown) (no date) (unknown) (unknown) Left shoulder was relocated under sedation as described above. 110 mg of (units unknown) (unknown) (unknown) (no date) (unknown) (unknown) Local Anesthet ic: lidocaine 1% and with epi (units unknown) (unknown) (unknown) (no date) (unknown) (unknown) MDM Narrative (units unknown) (unknown) (unknown) (no date) (unknown) (unknown) Mallampati Air way Classification: Class II (units unknown) (unknown) (unknown) (no date) (unknown) (unknown) Medical Decisi on Making (units unknown) (unknown) (unknown) (no date) (unknown) (unknown) Medical Histor y (units unknown) (unknown) (unknown) (no date) (unknown) (unknown) Medical decisi on making narrative: (units unknown) (unknown) (unknown) (no date) (unknown) (unknown) Midline spinal tenderness present: No (units unknown) (unknown) (unknown) (no date) (unknown) (unknown) Mode of arriva l: Ambulatory (units unknown) (unknown) (unknown) (no date) (unknown) (unknown) Neuro (units unknown) (unknown) (unknown) (no date) (unknown) (unknown) Neurologic (units unknown) (unknown) (unknown) (no date) (unknown) (unknown) Neurologic: Re ports system reviewed and no additional complaints, except as (units unknown) (unknown) (unknown) (no date) (unknown) (unknown) Nexus Criteria for C-spine: 0 (units unknown) (unknown) (unknown) (no date) (unknown) (unknown) Nexus Score fo r C-Spine (units unknown) (unknown) (unknown) (no date) (unknown) (unknown) No acute intra cranial hemorrhage is seen.? (units unknown) (unknown) (unknown) (no date) (unknown) (unknown) No acute intra cranial process is seen. (units unknown) (unknown) (unknown) (no date) (unknown) (unknown) No displaced f ractures are seen.? Age-appropriate bony degenerative changes are (units unknown) (unknown) (unknown) (no date) (unknown) (unknown) Noncontrast 4. 5 mm thick angled axial sections acquired from the foramen magnum (units unknown) (unknown) (unknown) (no date) (unknown) (unknown) Number of sutures: 2 (units unknown) (unknown) (unknown) (no date) (unknown) (unknown) Grady Robison MD [Physician] (units unknown) (unknown) (unknown) (no date) (unknown) (unknown) On Anticoagulants: Y es (units unknown) (unknown) (unknown) (no date) (unknown) (unknown) Ordered: (units unknown) (unknown) (unknown) (no date) (unknown) (unknown) Orders (units unknown) (unknown) (unknown) (no date) (unknown) (unknown) Orthopedic Salena nt Reduction (units unknown) (unknown) (unknown) (no date) (unknown) (unknown) Orthopedic Splinting/Casting (units unknown) (unknown) (unknown) (no date) (unknown) (unknown) Other: (units unknown) (unknown) (unknown) (no date) (unknown) (unknown) Oxygen Deliver y Method Nasal Cannula Nasal Cannula (units unknown) (unknown) (unknown) (no date) (unknown) (unknown) Oxygen Deliver y Method Nasal Cannula (units unknown) (unknown) (unknown) (no date) (unknown) (unknown) Oxygen Deliver y Method Room Air 08/15/22 14:40 (units unknown) (unknown) (unknown) (no date) (unknown) (unknown) Oxygen Deliver y Method Room Air (units unknown) (unknown) (unknown) (no date) (unknown) (unknown) Oxygen Delivery Meth od (units unknown) (unknown) (unknown) (no date) (unknown) (unknown) Oxygen Flow Rate 2 2 (units unknown) (unknown) (unknown) (no date) (unknown) (unknown) Oxygen Flow Rate 2 ( units unknown) (unknown) (unknown) (no date) (unknown) (unknown) Oxygen Flow Rate (un its unknown) (unknown) (unknown) (no date) (unknown) (unknown) PROCEDURE:? XR SHOULDER LT MIN 2V (units unknown) (unknown) (unknown) (no date) (unknown) (unknown) Patient Dispos ition: Home (units unknown) (unknown) (unknown) (no date) (unknown) (unknown) Patient History (uni ts unknown) (unknown) (unknown) (no date) (unknown) (unknown) Patient Tolera manoj Procedure: Well (units unknown) (unknown) (unknown) (no date) (unknown) (unknown) Patient is a 77-year-old female who is here for evaluation of injuries that she (units unknown) (unknown) (unknown) (no date) (unknown) (unknown) Patient: Megan Washington MR#: [id number] (units unknown) (unknown) (unknown) (no date) (unknown) (unknown) Placed by: Provider (units unknown) (unknown) (unknown) (no date) (unknown) (unknown) Point of Care Testin g (units unknown) (unknown) (unknown) (no date) (unknown) (unknown) Point of care testin g: (units unknown) (unknown) (unknown) (no date) (unknown) (unknown) Post Reduction X-Ray Obtained: Yes (units unknown) (unknown) (unknown) (no date) (unknown) (unknown) Post Reduction X-Ray Results: reduced (units unknown) (unknown) (unknown) (no date) (unknown) (unknown) Post splinting neuro exam: no change (units unknown) (unknown) (unknown) (no date) (unknown) (unknown) Post splinting vascular exam: no change (units unknown) (unknown) (unknown) (no date) (unknown) (unknown) Post-reduction neuro exam: no change (units unknown) (unknown) (unknown) (no date) (unknown) (unknown) Post-reduction vascular: no change (units unknown) (unknown) (unknown) (no date) (unknown) (unknown) Pre-repair: wo und explored (units unknown) (unknown) (unknown) (no date) (unknown) (unknown) Test Results Not applicable (units unknown) (unknown) (unknown) (no date) (unknown) (unknown) Preparation: c ardiac monitor applied, pulse oximeter, capnometry used, (units unknown) (unknown) (unknown) (no date) (unknown) (unknown) Procedural Sedation (units unknown) (unknown) (unknown) (no date) (unknown) (unknown) Procedures (units unknown) (unknown) (unknown) (no date) (unknown) (unknown) Propofol (Prop ofol 200 Mg/20 Ml Vial) 10 mg IV NOW ONE (units unknown) (unknown) (unknown) (no date) (unknown) (unknown) Propofol (Prop ofol 200 Mg/20 Ml Vial) 100 mg IV NOW ONE (units unknown) (unknown) (unknown) (no date) (unknown) (unknown) Pulse Oximetry 93 (u nits unknown) (unknown) (unknown) (no date) (unknown) (unknown) Pulse Oximetry 94 92 (units unknown) (unknown) (unknown) (no date) (unknown) (unknown) Pulse Oximetry 95 92 (units unknown) (unknown) (unknown) (no date) (unknown) (unknown) Pulse Oximetry 95 96 (units unknown) (unknown) (unknown) (no date) (unknown) (unknown) Pulse Oximetry 95 (u nits unknown) (unknown) (unknown) (no date) (unknown) (unknown) Pulse Oximetry 96 95 (units unknown) (unknown) (unknown) (no date) (unknown) (unknown) Pulse Oximetry 96 (u nits unknown) (unknown) (unknown) (no date) (unknown) (unknown) Pulse Oximetry 97 08/15/22 14:40 (units unknown) (unknown) (unknown) (no date) (unknown) (unknown) Pulse Oximetry 97 94 95 (units unknown) (unknown) (unknown) (no date) (unknown) (unknown) Pulse Oximetry 97 95 (units unknown) (unknown) (unknown) (no date) (unknown) (unknown) Pulse Rate 101 H (un its unknown) (unknown) (unknown) (no date) (unknown) (unknown) Pulse Rate 103 H 109 H (units unknown) (unknown) (unknown) (no date) (unknown) (unknown) Pulse Rate 85 81 (un its unknown) (unknown) (unknown) (no date) (unknown) (unknown) Pulse Rate 86 (units unknown) (unknown) (unknown) (no date) (unknown) (unknown) Pulse Rate 89 08/15/22 14:40 (units unknown) (unknown) (unknown) (no date) (unknown) (unknown) Pulse Rate 89 93 H 8 9 (units unknown) (unknown) (unknown) (no date) (unknown) (unknown) Pulse Rate 92 H 95 H (units unknown) (unknown) (unknown) (no date) (unknown) (unknown) Pulse Rate 92 H (uni ts unknown) (unknown) (unknown) (no date) (unknown) (unknown) Pulse Rate 93 H 90 ( units unknown) (unknown) (unknown) (no date) (unknown) (unknown) Pulse Rate 94 H 97 H (units unknown) (unknown) (unknown) (no date) (unknown) (unknown) Pulse Rate 94 H (uni ts unknown) (unknown) (unknown) (no date) (unknown) (unknown) Pulse Rate 95 H 94 H (units unknown) (unknown) (unknown) (no date) (unknown) (unknown) ROCEDURE:? CT HEAD/BRAIN WO CON (units unknown) (unknown) (unknown) (no date) (unknown) (unknown) Radiologist's Impression: (units unknown) (unknown) (unknown) (no date) (unknown) (unknown) Rate: regular rate ( units unknown) (unknown) (unknown) (no date) (unknown) (unknown) Referrals: (units unknown) (unknown) (unknown) (no date) (unknown) (unknown) Related Data (units unknown) (unknown) (unknown) (no date) (unknown) (unknown) Resp (units unknown) (unknown) (unknown) (no date) (unknown) (unknown) Respiratory Ra te 16 08/15/22 14:40 (units unknown) (unknown) (unknown) (no date) (unknown) (unknown) Respiratory Rate 16 (units unknown) (unknown) (unknown) (no date) (unknown) (unknown) Respiratory Rate 18 24 (units unknown) (unknown) (unknown) (no date) (unknown) (unknown) Respiratory Ra te 29 H 26 H (units unknown) (unknown) (unknown) (no date) (unknown) (unknown) Respiratory Rate 30 H (units unknown) (unknown) (unknown) (no date) (unknown) (unknown) Respiratory Ra te 31 H 37 H (units unknown) (unknown) (unknown) (no date) (unknown) (unknown) Respiratory Rate 38 H (units unknown) (unknown) (unknown) (no date) (unknown) (unknown) Respiratory Rate 59 H (units unknown) (unknown) (unknown) (no date) (unknown) (unknown) Respiratory Rate (un its unknown) (unknown) (unknown) (no date) (unknown) (unknown) Respiratory (units unknown) (unknown) (unknown) (no date) (unknown) (unknown) Respiratory: R eports system reviewed and no additional complaints, except as (units unknown) (unknown) (unknown) (no date) (unknown) (unknown) Review of Systems (u nits unknown) (unknown) (unknown) (no date) (unknown) (unknown) Rhythm: regular rhyt hm (units unknown) (unknown) (unknown) (no date) (unknown) (unknown) Scores (units unknown) (unknown) (unknown) (no date) (unknown) (unknown) Shoulder Techn ique Used (if applicable): Milch (units unknown) (unknown) (unknown) (no date) (unknown) (unknown) Side (If appli cable): left (units unknown) (unknown) (unknown) (no date) (unknown) (unknown) Side: left (units unknown) (unknown) (unknown) (no date) (unknown) (unknown) Signed By: (units unknown) (unknown) (unknown) (no date) (unknown) (unknown) Sinuses:? Visu alized sinuses and mastoids are clear.? (units unknown) (unknown) (unknown) (no date) (unknown) (unknown) Site: face (Forehead ) (units unknown) (unknown) (unknown) (no date) (unknown) (unknown) Size (cm): 1 (units unknown) (unknown) (unknown) (no date) (unknown) (unknown) Skin layer malia sed with: nylon (units unknown) (unknown) (unknown) (no date) (unknown) (unknown) Skin (units unknown) (unknown) (unknown) (no date) (unknown) (unknown) Skin/Breast: R eports system reviewed and no additional complaints, except as (units unknown) (unknown) (unknown) (no date) (unknown) (unknown) Skull and face :? There is a mild scalp hematoma seen anteriorly and on the left, (units unknown) (unknown) (unknown) (no date) (unknown) (unknown) Smoking Status : Former smoker (units unknown) (unknown) (unknown) (no date) (unknown) (unknown) Social History (units unknown) (unknown) (unknown) (no date) (unknown) (unknown) Sodium Chlorid e (Normal Saline 0.9%) 1,000 mls @ 125 mls/hr IV CONT JACKI (units unknown) (unknown) (unknown) (no date) (unknown) (unknown) Soft tissues:? No suspicious soft tissue calcifications.? The visualized lung (units unknown) (unknown) (unknown) (no date) (unknown) (unknown) Soft tissues:? No suspicious soft tissue calcifications.? (units unknown) (unknown) (unknown) (no date) (unknown) (unknown) Source: patient (uni ts unknown) (unknown) (unknown) (no date) (unknown) (unknown) Splint Applied: No ( units unknown) (unknown) (unknown) (no date) (unknown) (unknown) Stand Alone Fo bre: Patient Portal/API (units unknown) (unknown) (unknown) (no date) (unknown) (unknown) Stated complai nt: fall, head wound, left arm and shoulder pain (units unknown) (unknown) (unknown) (no date) (unknown) (unknown) Stop: 08/15/22 16:13 (units unknown) (unknown) (unknown) (no date) (unknown) (unknown) Stop: 08/15/22 17:09 (units unknown) (unknown) (unknown) (no date) (unknown) (unknown) Substance Use Type: does not use (units unknown) (unknown) (unknown) (no date) (unknown) (unknown) Surgical Histo ry (units unknown) (unknown) (unknown) (no date) (unknown) (unknown) TECHNIQUE:? 2 views of the shoulder were acquired.? (units unknown) (unknown) (unknown) (no date) (unknown) (unknown) TECHNIQUE:? 3 views of the shoulder were acquired.? (units unknown) (unknown) (unknown) (no date) (unknown) (unknown) TECHNIQUE:? (units unknown) (unknown) (unknown) (no date) (unknown) (unknown) Technique: sim ple, interrupted (units unknown) (unknown) (unknown) (no date) (unknown) (unknown) Temperature 98 .6 F 08/15/22 14:40 (units unknown) (unknown) (unknown) (no date) (unknown) (unknown) Temperature 98.6 F ( units unknown) (unknown) (unknown) (no date) (unknown) (unknown) Temperature (units unknown) (unknown) (unknown) (no date) (unknown) (unknown) Tetanus Toxoid Allergy Unknown Uncoded 07/12/17 12:14 (units unknown) (unknown) (unknown) (no date) (unknown) (unknown) The stitches a re not absorbable and do need to be removed in the next 7-10 days. (units unknown) (unknown) (unknown) (no date) (unknown) (unknown) Time Out Perfo rmed: Yes (units unknown) (unknown) (unknown) (no date) (unknown) (unknown) Time Seen by [place]: 08/15/22 15:06 (units unknown) (unknown) (unknown) (no date) (unknown) (unknown) Upper Extremit y Immobilizer: sling/shoulder immobilizer (units unknown) (unknown) (unknown) (no date) (unknown) (unknown) Upper Extremit y Injury Location: shoulder (units unknown) (unknown) (unknown) (no date) (unknown) (unknown) Urine Culture Stat ( units unknown) (unknown) (unknown) (no date) (unknown) (unknown) Urine Dip (units unknown) (unknown) (unknown) (no date) (unknown) (unknown) Urine Specific [place] 1.015 (units unknown) (unknown) (unknown) (no date) (unknown) (unknown) Vital Signs - 8 hr ( units unknown) (unknown) (unknown) (no date) (unknown) (unknown) Vital Signs (units unknown) (unknown) (unknown) (no date) (unknown) (unknown) Vital signs: (units unknown) (unknown) (unknown) (no date) (unknown) (unknown) XR shoulder LT min 2V Stat (units unknown) (unknown) (unknown) (no date) (unknown) (unknown) You can go to your primary doctor or the walk-in clinic or back here to the (units unknown) (unknown) (unknown) (no date) (unknown) (unknown) You can take Tylenol/ibuprofen for any discomfort. Recommend that you contact (units unknown) (unknown) (unknown) (no date) (unknown) (unknown) a (units unknown) (unknown) (unknown) (no date) (unknown) (unknown) age, with (units unknown) (unknown) (unknown) (no date) (unknown) (unknown) alcohol intake: karoline yang (units unknown) (unknown) (unknown) (no date) (unknown) (unknown) and fell forwa rd and hit her head and also injured her left shoulder. There was (units unknown) (unknown) (unknown) (no date) (unknown) (unknown) antibiotic oin tment. You can also shower like normal. The sling is for your (units unknown) (unknown) (unknown) (no date) (unknown) (unknown) artery atherosclerosis.? (units unknown) (unknown) (unknown) (no date) (unknown) (unknown) as documented (units unknown) (unknown) (unknown) (no date) (unknown) (unknown) as on (units unknown) (unknown) (unknown) (no date) (unknown) (unknown) be re-dosed. F orehead laceration was closed as described above. This was a (units unknown) (unknown) (unknown) (no date) (unknown) (unknown) can be (units unknown) (unknown) (unknown) (no date) (unknown) (unknown) carotid (units unknown) (unknown) (unknown) (no date) (unknown) (unknown) changes. (units unknown) (unknown) (unknown) (no date) (unknown) (unknown) comfort. Avoid putting your arm/shoulder in the position that we discussed. (units unknown) (unknown) (unknown) (no date) (unknown) (unknown) complaints, ex cept as documented (units unknown) (unknown) (unknown) (no date) (unknown) (unknown) contraindication).? (units unknown) (unknown) (unknown) (no date) (unknown) (unknown) criteria. No o ther injuries reported from the event by the patient nor found on (units unknown) (unknown) (unknown) (no date) (unknown) (unknown) [facility] for further evaluation (assuming that there is (units unknown) (unknown) (unknown) (no date) (unknown) (unknown) demonstrates a n unremarkable appearance. (units unknown) (unknown) (unknown) (no date) (unknown) (unknown) documented (units unknown) (unknown) (unknown) (no date) (unknown) (unknown) emergency depa rtment for that. You can cover with a bandage and use topical (units unknown) (unknown) (unknown) (no date) (unknown) (unknown) evaluate any underlying [place] or [place] fractures. (units unknown) (unknown) (unknown) (no date) (unknown) (unknown) expressed understanding and agreement plan. (units unknown) (unknown) (unknown) (no date) (unknown) (unknown) facial bones a ppear intact, without suspicious lesions.? (units unknown) (unknown) (unknown) (no date) (unknown) (unknown) following (units unknown) (unknown) (unknown) (no date) (unknown) (unknown) fracture. (units unknown) (unknown) (unknown) (no date) (unknown) (unknown) household memb ers: none (units unknown) (unknown) (unknown) (no date) (unknown) (unknown) identified. (units unknown) (unknown) (unknown) (no date) (unknown) (unknown) imaging t to (units unknown) (unknown) (unknown) (no date) (unknown) (unknown) matter chronic small vessel ischemic changes.? Areas of remote lacunar infarcts (units unknown) (unknown) (unknown) (no date) (unknown) (unknown) mechanical fal l. Head CT is unremarkable. Cervical spine is cleared by nexus (units unknown) (unknown) (unknown) (no date) (unknown) (unknown) no loss of consciousness. She is no neck pain. She did sustain some bruising (units unknown) (unknown) (unknown) (no date) (unknown) (unknown) no (units unknown) (unknown) (unknown) (no date) (unknown) (unknown) patient (units unknown) (unknown) (unknown) (no date) (unknown) (unknown) propofol was u sed because after 1st attempt shoulder was not reduced she had to (units unknown) (unknown) (unknown) (no date) (unknown) (unknown) resultant vent ricular and sulcal prominence.? There are periventricular and deep (units unknown) (unknown) (unknown) (no date) (unknown) (unknown) seen involving the basal ganglia on both sides.? There is intracranial internal (units unknown) (unknown) (unknown) (no date) (unknown) (unknown) seen.? (units unknown) (unknown) (unknown) (no date) (unknown) (unknown) series 2, imag e 25. No associated calvarial fracture is seen.? Calvarium and (units unknown) (unknown) (unknown) (no date) (unknown) (unknown) size.? (units unknown) (unknown) (unknown) (no date) (unknown) (unknown) supplemental O 2 applied, suction/airway equipment at bedside and IV secured (units unknown) (unknown) (unknown) (no date) (unknown) (unknown) sustained when she was throwing some garbage into a dumpster. She states she (units unknown) (unknown) (unknown) (no date) (unknown) (unknown) tenderness (units unknown) (unknown) (unknown) (no date) (unknown) (unknown) the exam. Jeannie ent was given return precautions and follow-up instructions. She (units unknown) (unknown) (unknown) (no date) (unknown) (unknown) the orthopedic doctors with a number provided below for follow-up. (units unknown) (unknown) (unknown) (no date) (unknown) (unknown) to her left kn ee and her right elbow. She was placed in a sling in triage. (units unknown) (unknown) (unknown) (no date) (unknown) (unknown) to the (units unknown) (unknown) (unknown) (no date) (unknown) (unknown) turned around. She thinks she got her feet caught on something on the ground (units unknown) (unknown) (unknown) (no date) (unknown) (unknown) ventricles are symmetric in size and shape.? (units unknown) (unknown) (unknown) (no date) (unknown) (unknown) vertex, with c oronal and sagittal reformats.? For radiation dose reduction, the (units unknown) (unknown) (unknown) (no date) (unknown) (unknown) visualized (units unknown) (unknown) (unknown) (no date) (unknown) (unknown) was used:? aut omated exposure control, adjustment of mA and/or kV according to (units unknown) (unknown) (unknown) (no date) (unknown) (unknown) white (units unknown) (unknown) Result panel 8 (unknown) (no date) (unknown) (unknown) 0-1 /HPF (units unknown) (unknown) (unknown) (no date) (unknown) (unknown) 0-1/HPF (units unknown) (unknown) (unknown) (no date) (unknown) (unknown) 0-1/HPF (units unknown) (unknown) (unknown) (no date) (unknown) (unknown) 1-5/HPF (units unknown) (unknown) (unknown) (no date) (unknown) (unknown) Many (>30) (units unknown) (unknown) Result panel 9 (unknown) (no date) (unknown) (unknown) >100,000 cfu/ml (unknow n) (unknown) (no date) (unknown) (unknown) GNBGram negati ve bacilli (units unknown) (unknown) (unknown) (no date) (unknown) (unknown) Identification and Sensitivity to Follow (units unknown) (unknown) Result panel 10 (unknown) (no date) (unknown) (unknown) >100,000 cfu/ml (unknow n) (unknown) (no date) (unknown) (unknown) <=0.12 (units unknown) (unknown) (unknown) (no date) (unknown) (unknown) <=0.25 (units unknown) (unknown) (unknown) (no date) (unknown) (unknown) <=0.5 (units unknown) (unknown) (unknown) (no date) (unknown) (unknown) <=1 (units unknown) (unknown) (unknown) (no date) (unknown) (unknown) <=16 (units unknown) (unknown) (unknown) (no date) (unknown) (unknown) <=2 (units unknown) (unknown) (unknown) (no date) (unknown) (unknown) <=20 (units unknown) (unknown) (unknown) (no date) (unknown) (unknown) <=4 (units unknown) (unknown) (unknown) (no date) (unknown) (unknown) 4 (units unknown) (unknown) (unknown) (no date) (unknown) (unknown) ESCCOLEscherichia co li (units unknown) (unknown) (unknown) (no date) (unknown) (unknown) No Further Workup (u nits unknown) (unknown) Social History date description facility 2022-08-15 00:00 Ex-smoker (finding) [facility] Vital Signs date measurement value units 2022-08-15 00:00 BMI 30.4 kg/m2 2022-08-15 00:00 BP_diastolic 98 mmHg 2022-08-15 00:00 BP_systolic 229 mmHg 2022-08-15 00:00 heart_rate 97 /min 2022-08-15 00:00 height_metric 157.48 cm 2022-08-15 00:00 height_standard 62 in 2022-08-15 00:00 o2_saturation 95 % 2022-08-15 00:00 respiration_rate 18 /min 2022-08-15 00:00 temperature_metric 37 C 2022-08-15 00:00 temperature_standard 98.6 F 2022-08-15 00:00 weight_metric 75.4 kg 2022-08-15 00:00 weight_standard 166.23 lb
[2022-08-26 18:23] VITALS: BP 137/87
== END 2022-08-26 18:53 | disposition home or self-care (01) ==
LOC: EDBD → ED 16:18
DX: S06.0XAA Concussion with loss of consciousness status unknown, initial encounter (principal); W18.39XA Other fall on same level, initial encounter; Y92.002 Bathroom of unspecified non-institutional (private) residence as the place of occurrence of the external cause; R94.4 Abnormal results of kidney function studies; R73.9 Hyperglycemia, unspecified; J34.1 Cyst and mucocele of nose and nasal sinus
CPT/HCPCS: 36415; 70450; 72125; 80053; 85025; 85610; 93005; 99283; 99284; G0480; 80320

== ENCOUNTER 2022-08-30 10:35 | Outpatient (CLI) | payer MEDICARE, OTHER | END 2022-08-30 23:59 | disposition short-term general hospital (02) | LOC: EMS 10:35 | DX: R41.0 Disorientation, unspecified (principal); R53.1 Weakness; R42 Dizziness and giddiness | CPT/HCPCS: A0425; A0427; A0888 ==

== ENCOUNTER 2022-10-28 07:56 | Outpatient (CLI) | payer MEDICARE, OTHER ==
[2022-10-28 12:30] LABS: BASOPHILS # (AUTO) 0.1 10^3/uL (0.0-0.1); BASOPHILS % (AUTO) 1.4 %; EOSINOPHILS # (AUTO) 0.6 10^3/uL (0.0-0.7); EOSINOPHILS % (AUTO) 9.2 %; HCT - HEMATOCRIT 38.5 % (37.0-47.0); HGB - HEMOGLOBIN 12.3 g/dL (12.0-16.0); LYMPHOCYTES # (AUTO) 2.4 10^3/uL (1.5-3.5); LYMPHOCYTES % (AUTO) 38.5 %; MEAN CORPUSCULAR HGB CONC 31.9 g/dL (32.0-36.0); MEAN PLATELET VOLUME 10.1 fL (7.9-10.8); MONOCYTES # (AUTO) 0.3 10^3/uL (0.0-1.0); MONOCYTES % (AUTO) 5.1 %; NEUTROPHILS # (AUTO) 2.9 10^3/uL (1.5-6.6); NEUTROPHILS % (AUTO) 45.6 %; PLT - PLATELET COUNT 302 10^3/uL (130-450); RED BLOOD COUNT 3.97 10^6/uL (4.20-5.40); RED CELL DISTRIBUTION WIDTH 13.2 % (12.0-15.0); WHITE BLOOD COUNT 6.3 x10^3/uL (4.8-10.8)
[2022-10-28 12:49] LABS: ALBUMIN 4.2 g/dL (3.2-5.5); ALBUMIN/GLOBULIN RATIO 1.7 (1.0-2.2); ALKALINE PHOSPHATASE 64 IU/L (42-121); ALT ALANINE AMINOTRANSFERASE 9 IU/L (10-60); AST ASPARTATE AMINOTRANSFERASE 13 IU/L (10-42); BILIRUBIN,TOTAL 0.7 mg/dL (0.2-1.0); BUN - BLOOD UREA NITROGEN 25 mg/dL (6-20); CALCIUM 9.7 mg/dL (8.5-10.3); CARBON DIOXIDE - CO2 31 mmol/L (21-32); CHLORIDE 105 mmol/L (101-111); CHOL/HDL RATIO 4.8 (<4.4); CHOLESTEROL 243 mg/dL; CREATININE 1.3 mg/dL (0.6-1.3); CRP - C-REACTIVE PROTEIN 0.7 mg/dL (<0.5); GFR - MDRD 40 (>89); GLUCOSE 116 mg/dL (74-104); HDL CHOLESTEROL 51 mg/dL; LDL CHOLESTEROL,CALCULATED 157 mg/dL; LDL/HDL RATIO 3.1 (<4.4); POTASSIUM 3.9 mmol/L (3.5-4.5); SODIUM 141 mmol/L (135-145); TOTAL PROTEIN 6.7 g/dL (6.4-8.9); TRIGLYCERIDES 174 mg/dL (48-352); VLDL CHOLESTEROL 35 mg/dL
== END 2022-10-28 07:57 | disposition home or self-care (01) ==
LOC: LAB.N 07:56
PROVIDERS: ATTEND Nurse Practitioner
DX: I10 Essential (primary) hypertension (principal); Z13.220 Encounter for screening for lipoid disorders; G62.9 Polyneuropathy, unspecified; E03.9 Hypothyroidism, unspecified; R53.83 Other fatigue
CPT/HCPCS: 36415; 80053; 80061; 82607; 83721; 84439; 84443; 85025; 85651; 86140